=== PATIENT | male | born 1965 | race Caucasian/White ===

== ENCOUNTER 2018-02-07 09:46 | Outpatient (REF) | payer OTHER, SELFPAY ==
[2018-02-07 14:02] LABS: Anion Gap 7.4 mmol/L (3-11); BUN 14 mg/dL (7-18); CO2 27.6 mmol/L (21.0-32.0); CREATININE 0.98 mg/dL (0.70-1.30); Calcium 8.6 mg/dL (8.5-10.1); Chloride 104 mmol/L (98-107); Cholesterol 261 mg/dL (50-200); Glucose 106 mg/dL (70-100); HDL Cholesterol 64 mg/dL (40-60); LDL CHOLESTEROL 189 mg/dL (<100); Potassium 4.2 mmol/L (3.5-5.1); Sodium 139 mmol/L (136-145); Triglyceride 71 mg/dL (30-150)
== END 2018-02-07 10:06 ==
LOC: LBN 09:46
PROVIDERS: PCP Internal Medicine; Visit Provider Internal Medicine
DX: I10 Essential (primary) hypertension (principal)
CPT/HCPCS: 80048; 80061; 83721

== ENCOUNTER 2018-04-28 07:35 | Day surgery (SDC) | payer OTHER, SELFPAY ==
[2018-04-28 07:40] VITALS: BP 136/83; PULSE 60; RESP 16; TEMP 36.2; O2SAT 98
[2018-04-28] MEDS: Lactated Ringers 1,000 ML 30 ML IV (08:09)
--- NOTE | 2018-04-28 10:01 | W.COLOREPORT ---
Date of service: 04/28/18 Time of Service: 10:00 Colonoscopy Report Date of procedure: 04/28/18 Pre-op diagnosis general: Family history of colon cancer Post-op diagnosis procedure note: other (Normal colon to the cecum) Procedure: Colonoscopy to the cecum Surgeon: Brett Zelaya Anesthesia proc note operative: MAC (Sujatha Coffman CRNA; ASA 2 Mallampati class II) Estimated blood loss (mL): 0 Pathology: none sent Complications: None Disposition: same day Indications: 52-year-old male presenting for colorectal cancer screening by colonoscopy. He has been asymptomatic. He does have a family history of colon cancer with a brother who has neurofibromatosis and colon cancer. The procedure has been reviewed with him, and the risks discussed. All his questions been answered to his satisfaction, and consent has been obtained to proceed with colonoscopy. Prep: Miralax/Dulcolax (Prep quality excellent) Procedure Start Time: 09:40 Procedure End Time: 10:55 Retraction Time: 9 Findings: In examining the colon from cecum to anus, no abnormalities were noted. Procedure Description: The patient was seen in the day surgery waiting area. His identification was confirmed, and procedure checked. He was then brought to the procedure room. Monitoring for telemetry, blood pressure, oxygen saturation, and end tidal CO2 monitoring were applied. An appropriate time out was performed to confirm, identification, allergies, medication, procedure, was performed. Sedation was titrated for affect by the MAGNETO SPECIALIST; Once adequate sedation was achieved, I performed a inspection of the external perineum, and a digitial rectal examination. No significant external abnormalities were noted. On digital rectal examination, there was no blood, no masses, good rectal tone, and a normal prostate. I advanced the colonoscope from the anus to the cecum under direct visualization. The cecum was identified by the ileal-cecal valve, and the appendiceal orifice. The scope was then withdrawn in circumferential manner from the cecum to the rectum. No abnormalites were noted in the colon. The scope was then withdrawn into the rectum, and retroflexed. No abnormalities were noted of the rectum or anorectal junction. The scope was then withdrawn, terminating the procedure. There were no complications during the procedure, and the patient tolerated the procedure well. He was returned to the day surgery recovery area in good condition. Plan: Will continue with routine screening for colorectal cancer according to current consensus guidelines, which is currently 5 years.
--- NOTE | 2018-04-28 10:04 | COLE_ITS ---
Date of service: 04/28/18 Time of Service: 10:00 Colonoscopy Report Date of procedure: 04/28/18 Pre-op diagnosis general: Family history of colon cancer Post-op diagnosis procedure note: other (Normal colon to the cecum) Procedure: Colonoscopy to the cecum Surgeon: Brett Zelaya Anesthesia proc note operative: MAC (Sujatha Coffman CRNA; ASA 2 Mallampati class II) Estimated blood loss (mL): 0 Pathology: none sent Complications: None Disposition: same day Indications: 52-year-old male presenting for colorectal cancer screening by colonoscopy. He has been asymptomatic. He does have a family history of colon cancer with a brother who has neurofibromatosis and colon cancer. The procedure has been reviewed with him, and the risks discussed. All his questions been answered to his satisfaction, and consent has been obtained to proceed with colonoscopy. Prep: Miralax/Dulcolax (Prep quality excellent) Procedure Start Time: 09:40 Procedure End Time: 10:55 Retraction Time: 9 Findings: In examining the colon from cecum to anus, no abnormalities were noted. Procedure Description: The patient was seen in the day surgery waiting area. His identification was confirmed, and procedure checked. He was then brought to the procedure room. Monitoring for telemetry, blood pressure, oxygen saturation , and end tidal CO2 monitoring were applied. An appropriate time out was performed to confirm, identification, allergies, medication, procedure, was performed. Sedation was titrated for affect by the REINFORCING STEEL MACHINE OPERATOR; Once adequate sedation was achieved, I performed a inspection of the external perineum, and a digitial rectal examination. No significant external abnormalities were noted. On digital rectal examination, there was no blood, no masses, good rectal tone, and a normal prostate. I advanced the colonoscope from the anus to the cecum under direct visualization. The cecum was identified by the ileal-cecal valve, and the appendiceal orifice. The scope was then withdrawn in circumferential manner from the cecum to the rectum. No abnormalites were noted in the colon. The scope was then withdrawn into the rectum, and retroflexed. No abnormalities were noted of the rectum or anorectal junction. The scope was then withdrawn, terminating the procedure. There were no complications during the procedure, and the patient tolerated the procedure well. He was returned to the day surgery recovery area in good condition. Plan: Will continue with routine screening for colorectal cancer according to current consensus guidelines, which is currently 5 years.
--- NOTE | 2018-04-28 10:05 | W.PM.DSUDISC ---
Discharge Plan Disposition Patient Disposition: HOME Condition: Good Discharge Details Reason For Visit: SCREENING Attending Provider: Brett Zelaya Primary Care Provider: Sierra Puckett Home Meds and New Rx's Prescriptions: Continue amlodipine 5 mg tablet 5 mg PO DAILY Qty: 90 RF: 3 Discharge Instructions Instructions: Colonoscopy (DC) Activity:: Activity as Tolerated Diet:: As Tolerated Discharge Orders Discharge Orders: Discharge Order (Routine); Ordered 04/28/18 Ordered By: Brett Zelaya DS: Diagnosis Discharge Diagnosis (1) Family history of malignant neoplasm of digestive organs: Status: Chronic Asessment and Plan: Colonoscopy performed: Colonoscopy Report Date of procedure: 04/28/18 Pre-op diagnosis general: Family history of colon cancer Post-op diagnosis procedure note: other (Normal colon to the cecum) Procedure: Colonoscopy to the cecum Surgeon: Brett Zelaya Anesthesia proc note operative: MAC (Mulugeta Coffman CRNA; ASA 2 Mallampati class II) Estimated blood loss (mL): 0 Pathology: none sent Complications: None Disposition: same day Indications: 56-year-old gentleman presenting for colorectal cancer screening with a personal history of colon polyps. He is been asymptomatic since his last colonoscopy, and has no family history of colorectal cancer. The risks and benefits of the procedure have been reviewed with him as has the procedure itself. Consents been obtained to proceed with colonoscopy Prep: Miralax/Dulcolax (Prep quality good) Procedure Start Time: 09:40 Procedure End Time: 09:55 Retraction Time: 9 Findings: In examining the colon from cecum to anus, no abnormalities were noted. Procedure Description: The patient was seen in the day surgery waiting area. His identification was confirmed, and procedure checked. He was then brought to the procedure room. Monitoring for telemetry, blood pressure, oxygen saturation, and end tidal CO2 monitoring were applied. An appropriate time out was performed to confirm, identification, allergies, medication, procedure, was performed. Sedation was titrated for affect by the MICROFICHE CAMERA OPERATOR; Once adequate sedation was achieved, I performed a inspection of the external perineum, and a digitial rectal examination. No significant external abnormalities were noted. On digital rectal examination, there was no blood, no masses, good rectal tone, and a normal prostate. I advanced the colonoscope from the anus to the cecum under direct visualization. The cecum was identified by the ileal-cecal valve, and the appendiceal orifice. The scope was then withdrawn in circumferential manner from the cecum to the rectum. No abnormalites were noted in the colon. The scope was then withdrawn into the rectum, and retroflexed. No abnormalities were noted of the rectum or anorectal junction. The scope was then withdrawn, terminating the procedure. There were no complications during the procedure, and the patient tolerated the procedure well. He was returned to the day surgery recovery area in good condition. Plan: Will continue with routine screening for colorectal cancer according to current consensus guidelines, which is currently 5 years.
[2018-04-28 10:40] VITALS: BP 138/82; PULSE 50; RESP 16; TEMP 36; O2SAT 98
== END 2018-04-28 11:00 | disposition home or self-care (01) ==
PROVIDERS: PCP Internal Medicine; Visit Provider Surgery
PROC: 0DJD8ZZ Inspection of Lower Intestinal Tract, Via Natural or Artificial Opening Endoscopic (ICD-10-PCS; CPT 45378; principal; 2018-04-28 09:00)
DX: Z12.11 Encounter for screening for malignant neoplasm of colon (principal); Z80.0 Family history of malignant neoplasm of digestive organs; I10 Essential (primary) hypertension
CPT/HCPCS: 45378

== ENCOUNTER 2018-07-10 02:09 | Outpatient (CLI) | payer OTHER, SELFPAY ==
[2018-07-10 10:40] LABS: Cholesterol 278 mg/dL (50-200); Glucose 102 mg/dL (70-100); HDL Cholesterol 61 mg/dL (40-60); LDL CHOLESTEROL 195 mg/dL (<100); Triglyceride 110 mg/dL (30-150)
== END 2018-07-10 02:29 ==
PROVIDERS: PCP Internal Medicine; Visit Provider Internal Medicine
DX: I10 Essential (primary) hypertension (principal); R73.01 Impaired fasting glucose
CPT/HCPCS: 36415; 80061; 82947; 83721

== ENCOUNTER 2019-06-12 02:07 | Outpatient (CLI) | payer OTHER, SELFPAY ==
[2019-06-12 10:17] LABS: Anion Gap 9.5 mmol/L (3-11); BUN 18 mg/dL (7-18); CO2 27.5 mmol/L (21.0-32.0); CREATININE 1.05 mg/dL (0.70-1.30); Calcium 9.3 mg/dL (8.5-10.1); Calculated LDL 189 mg/dL; Chloride 103 mmol/L (98-107); Cholesterol 269 mg/dL (<200); Glucose 102 mg/dL (74-106); HDL Cholesterol 61 mg/dL (40-60); Potassium 4.3 mmol/L (3.5-5.1); Sodium 140 mmol/L (136-145); Triglyceride 95 mg/dL (<150)
== END 2019-06-12 02:27 ==
PROVIDERS: PCP Internal Medicine; Visit Provider Internal Medicine
DX: I10 Essential (primary) hypertension (principal); E78.00 Pure hypercholesterolemia, unspecified
CPT/HCPCS: 36415; 80048; 80061

== ENCOUNTER 2019-07-09 03:28 | Outpatient (CLI) | payer OTHER, SELFPAY ==
[2019-07-09 09:20] LABS: Calculated LDL 113 mg/dL (<100); Cholesterol 189 mg/dL (<200); HDL Cholesterol 62 mg/dL (40-60); Triglyceride 71 mg/dL (<150)
== END 2019-07-09 03:48 ==
PROVIDERS: PCP Internal Medicine; Visit Provider Internal Medicine
DX: E78.00 Pure hypercholesterolemia, unspecified (principal)
CPT/HCPCS: 36415; 80061

== ENCOUNTER 2020-01-07 02:25 | Outpatient (CLI) | payer OTHER, SELFPAY ==
[2020-01-07 16:04] LABS: Anion Gap 11.1 mmol/L (3-11); BUN 20 mg/dL (7-18); CO2 27.9 mmol/L (21.0-32.0); CREATININE 1.13 mg/dL (0.70-1.30); Calcium 9.1 mg/dL (8.5-10.1); Calculated LDL 90 mg/dL (<100); Chloride 102 mmol/L (98-107); Cholesterol 161 mg/dL (<200); Glucose 90 mg/dL (74-106); HDL Cholesterol 56 mg/dL (40-60); Potassium 3.8 mmol/L (3.5-5.1); Sodium 141 mmol/L (136-145); Triglyceride 77 mg/dL (<150)
== END 2020-01-07 02:45 ==
PROVIDERS: PCP Internal Medicine; Visit Provider Internal Medicine
DX: E78.00 Pure hypercholesterolemia, unspecified (principal); I10 Essential (primary) hypertension
CPT/HCPCS: 36415; 80048; 80061

== ENCOUNTER 2020-04-30 02:22 | Outpatient (CLI) | payer OTHER, SELFPAY ==
[2020-05-01 19:21] LABS: COVID-19 RT-PCR UVMMC Result Negative (Negative)
== END 2020-04-30 02:42 ==
PROVIDERS: PCP Internal Medicine; Visit Provider Internal Medicine
DX: Z20.828 Contact with and (suspected) exposure to other viral communicable diseases (principal)
CPT/HCPCS: U0003

== ENCOUNTER 2020-05-05 03:18 | Outpatient (CLI) | payer OTHER, SELFPAY ==
[2020-05-06 17:30] LABS: COVID-19 RT-PCR UVMMC Result Negative (Negative)
== END 2020-05-05 03:38 ==
PROVIDERS: PCP Internal Medicine; Visit Provider Internal Medicine
DX: Z20.828 Contact with and (suspected) exposure to other viral communicable diseases (principal)
CPT/HCPCS: U0003

== ENCOUNTER 2020-08-07 02:32 | Outpatient (CLI) | payer OTHER, SELFPAY ==
[2020-08-08 14:55] LABS: COVID-19 RT-PCR UVMMC Result Negative (Negative)
== END 2020-08-07 02:33 | disposition home or self-care (01) ==
LOC: LBO 02:33
PROVIDERS: PCP Internal Medicine; Visit Provider Internal Medicine
DX: Z20.828 Contact with and (suspected) exposure to other viral communicable diseases (principal)
CPT/HCPCS: U0003

== ENCOUNTER 2020-08-26 10:43 | Emergency (ER) | payer OTHER, SELFPAY ==
[2020-08-26] VITALS (14 sets, daily range): BP systolic 140–168; BP diastolic 77–98; PULSE 63–76; RESP 11–20; TEMP 36.4; O2SAT 96–99
--- NOTE | 2020-08-26 11:15 | DI.CT_ITS ---
EXAM: CT HEAD WO CLINICAL HISTORY: VÁSQUEZ. TECHNIQUE: Imaging Protocol: Axial computed tomography images with coronal and sagittal reformatted images were created and reviewed COMPARISON: No exams were available for comparison FINDINGS: The ventricular system is normal in appearance. No evidence of acute intracranial hemorrhage, mass effect, or midline shift. The orbital structures are unremarkable. The temporal bone structures appear intact. Calvarium: Normal. Visualized Paranasal sinuses/Mastoids: Clear. IMPRESSION: Normal cranial CT. RADIATION DOSE DELIVERED: 826.33mGy.cm Total DLP DATA REPOSITORY: All CT scans at this facility are submitted to the National Radiology Data Registry (NRDR) Dose Index Registry (DIR) with the [employer] (ACR). RADIATION OPTIMIZATION: All CT scans at this facility use at least one of these dose optimization te chniques: automated exposure control; mA and/or kV adjustment per patient size (includes targeted exa ms where dose is matched to clinical indication); or iterative reconstruction.
--- NOTE | 2020-08-26 11:22 | ED.GENADUL_ITS ---
Discharge Plan Disposition Patient Disposition: HOME Condition: Good Discharge Details Clinical Impression: Headache Primary Care Provider: Sierra Puckett ED Provider: Faye Gutiérrez Home Meds and New Rx's Prescriptions: New prochlorperazine maleate [Compazine] 10 mg tablet 10 mg PO Q6H PRNQty: 10 RF: 0 No Action amlodipine-benazepril 5-40 mg capsule 1 cap PO DAILY Qty: 90 RF: 3 [id number] [Uusald-Jwpul-SVC (with antiox)] 500-500-66.7 mg tablet 2 tab PO DAILY RF: 0 omega-3 fatty acids [Fish Oil Concentrate] 1,000 mg capsule 1,000 mg PO BID RF: 0 atorvastatin 20 mg tablet 20 mg PO DAILY Qty: 90 RF: 3 hydrochlorothiazide 12.5 mg capsule 12.5 mg PO DAILY Qty: 90 RF: 3 Discharge Instructions Instructions: General Headache (ED) Additional Instructions: Please follow-up with your primary care physician tomorrow If the headache returns, you may try taking Excedrin and this is Compazine to see if it alleviates her symptoms We have discussed performing a lumbar puncture to further evaluate you, you have declined at this time, if your headache persists or worsens, you should return to the emergency room for additional evaluation Stand Alone Forms: Work Release Discharge Data Discharge Date/Time-TO BE ENTERED AT DEPARTURE: 08/26/20 14:32 Medical Decision Making Patient is alert, oriented, of decisional capacity, he has a negative CT brain has persistent discomfort, I recommended lumbar puncture to further evaluate for subarachnoid hemorrhage and patient has declined, we have a long discussion about risk and benefit Patient is agreeable to perform CTA of the head and neck He is also agreeable to additional medication I went in to reevaluate patient and it is feeling markedly improved after typical migraine medication He is requesting discharge home I did still make him aware that I cannot completely exclude subarachnoid hemorrhage based on today's findings although the PA and CT are reassuring, patient is a 6-hour time period where CT brain is the most sensitive for hemorrhage Patient remains alert and oriented with a nonfocal neurological exam throughout this encounter He is stable for discharge home at time of reevaluation He is recommended to return should he develop worsening or persistent headache and close outpatient follow-up with primary care physician recommended It is patient with small amount of Compazine Low suspicion for infectious etiology patient as he does not have symptoms consistent Differential Diagnosis Differential Diagnosis: Subdural hematoma, subarachnoid hemorrhage, sinusitis, migraine headache Medical Records Medical records reviewed: Yes I reviewed the patient's medical records. Lab Data Lab results reviewed: Yes I reviewed the patient's lab results. HPI This 54-year-old gentleman with history of hyperlipidemia presents with report of headache which started yesterday was gradual in onset. Denies prior history of headaches in the past. Denies any chest pain or shortness of breath. Denies any visual change. Denies any photophobia or photophobia. States that when he lays flat his headache improved. He denies any head injuries. He denies any strength or sensation changes to extremities or speech change. Patient denies any risk of carbon monoxide exposure. He denies any anticoagulation. General Date/Time Provider Initiated Documentation: 08/26/20 10:51 . Related Data Home Medications Medication Instructions Recorded Confirmed amlodipine 5 mg-benazepril 40 mg 1 cap PO DAILY #90 cap 01/09/20 08/26/20 capsule atorvastatin 20 mg tablet 20 mg PO DAILY #90 tab 07/29/20 08/26/20 hydrochlorothiazide 12.5 mg capsule 12.5 mg PO DAILY #90 tab-cap 07/29/20 08/26/20 gydprznzzjj-mog-eqbzaomne-hrb 2 tab PO DAILY tab 08/13/20 08/26/20 149-hyalur 500 mg-500 mg-66.7 mg tablet omega-3 fatty acids 1,000 mg 1,000 mg PO BID 08/13/20 08/26/20 capsule prochlorperazine maleate 10 mg PO Q6H PRN #10 tab 08/26/20 [Compazine] Previous Rx's Medication Instructions Recorded amlodipine 5 mg-benazepril 40 mg 1 cap PO DAILY #90 cap 01/09/20 capsule atorvastatin 20 mg tablet 20 mg PO DAILY #90 tab 07/29/20 hydrochlorothiazide 12.5 mg capsule 12.5 mg PO DAILY #90 tab-cap 07/29/20 prochlorperazine maleate 10 mg PO Q6H PRN #10 tab 08/26/20 [Compazine] Allergies Allergy/AdvReac Type Severity Reaction Status Date / Time No Known Allergies Allergy Verified 08/26/20 11:06 General Stated Complaint: Headache DU: 3 Review of Systems Narrative: Review of systems obtained x7 aside from where indicated in HPI [facility] Medical History (Updated 08/26/20 @ 14:22 by JONATAN Matthews) Family history of diabetes mellitus Hypertension Impaired fasting glucose Pure hypercholesterolemia Surgical History (Updated 03/15/19 @ 23:57 by Sierra Puckett MD) H/O colonoscopy (04/28/18) normal, repeat 2022 H/O vasectomy Hx of tonsillectomy S/P LASIK surgery of both eyes Family History Father CAD (coronary artery disease) Diabetes Hypertension Mother Diabetes Hypertension Neurofibromatosis Brother , age 19 rectal cancer relater to neurofibomatosis Rectal cancer Neurofibromatosis Social History (Updated 08/13/20 @ 14:52 by Jennifer Demarco LPN) Smoking/Tobacco Use Status: Never Smoking risk assessment performed?: Yes Alcohol Intake: current Alcohol Intake frequency: a few times a week Alcohol type: beer and hard liquor Drug use: Never Substance use type: does not use Adopted: No Household members: spouse and children Housing: house Number of Children: 2 Communication Needs: None 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 [employer] Pets and animals: No Current gender identity: male What is your relationship status?: Panel score (0-1 are the most socially isolated patients): 1 What type of physical activity do you participate in: running Duration: 15-30 minutes/day Frequency: 1-2 times per week Seatbelt use: always Drive intox or ride w/intox services delivery driver: No Water heater temp set <120 deg: Yes Working smoke detector in home: Yes Fire extinguisher in home: Yes Carbon monox detector in home: Yes Do you feel safe at home: Yes Do you feel safe in your relationship?: Yes Exam Const General: cooperative, no acute distress and well developed Orientation: alert HENMT Other: Uvula midline, moist mucous membranes Eyes Pupils: PERRL EOM: EOM intact bilaterally Neck Neck: full ROM Other: No carotid bruit No meningismus Resp Effort & Inspection: normal respiratory effort Auscultation: clear to auscultation bilaterally Cardio Rate: regular rate Rhythm: regular rhythm GI Other: No abdominal bruit or pulsatile mass Skin General skin exam: no rashes or lesions noted Neuro General: patient alert, patient oriented x3 and CN's II-XI intact bilaterally Cognition: normal cognition Speech: speech normal Motor: muscle tone normal throughout Sensory Exam: no sensory deficits noted Course Vital Signs Vital signs: Vital Signs Temperature 36.4 C L 08/26/20 11:01 Pulse 66 08/26/20 11:01 Respiratory Rate 16 08/26/20 11:01 Blood Pressure 168/89 H 08/26/20 11:01 Pulse Oximetry 98 08/26/20 11:01 Temperature 36.4 C L 08/26/20 11:01 Temperature Source Skin 08/26/20 11:01 Pulse 66 08/26/20 11:01 Respiratory Rate 16 08/26/20 11:01 Respiratory Effort Non-Labored 08/26/20 11:01 Blood Pressure 168/89 H 08/26/20 11:01 Blood Pressure Position Sitting 08/26/20 11:01 Pulse Oximetry 98 08/26/20 11:01 Oxygen Delivery Method Room Air 08/26/20 11:01 Oxygen Flow Rate 0 08/26/20 11:01 Pain Level 7 08/26/20 11:07
[2020-08-26] MEDS: Normal Saline 1,000 ML 1000 ML IV (11:40)
[2020-08-26] MEDS: Acetaminophen 500 MG TAB 1000 MG PO (11:40)
[2020-08-26 11:45] LABS: Abs Immature Grans 0.02 10^3/uL (0.0-0.06); Absolute Basophil Count 0.03 10^3/uL (0.0-0.2); Absolute Eosinophil Count 0.02 10^3/uL (0.0-0.7); Absolute Lymphocyte Count 1.22 10^3/uL (1.2-3.4); Absolute Monocyte Count 0.32 10^3/uL (0.1-0.8); Absolute Neutrophil Count 7.36 10^3/uL (1.2-6.7); Basophils % 0.3; Eosinophils % 0.2; HCT 47.8 % (40.0-50.0); HGB 15.8 g/dL (13.5-17.5); Immature Grans % 0.2; Lymphocytes % 13.6; MCH 28.6 pg (27.0-33.0); MCHC 33.1 % (32.0-36.0); MCV 86.4 fL (80-95); Monocytes % 3.6; Neutrophils % 82.1; Nucleated RBC 0 %; Platelet Count 239 10^3/uL (130-400); RBC 5.53 10^6/uL (4.36-5.78); RDW 12.9 % (11.8-14.1); RDW-SD 40.5 fL; WBC 8.97 10^3/uL (4.4-10.8)
[2020-08-26] MEDS: Prochlorperazine 10 MG/2 ML VIAL IVP (11:45)
[2020-08-26] MEDS: diphenhydrAMINE 50 MG/ML VIAL IM (11:50)
[2020-08-26 12:03] LABS: ALT 60 U/L (16-63); AST 20 U/L (15-37); Albumin 4.7 g/dL (3.4-5.0); Alkaline Phosphatase 57 U/L (46-116); Anion Gap 9.3 mmol/L (3-11); BUN 13 mg/dL (7-18); Bilirubin, Total 2.1 mg/dL (0.2-1.0); CO2 27.7 mmol/L (21.0-32.0); CREATININE 0.9 mg/dL (0.70-1.30); Calcium 9.5 mg/dL (8.5-10.1); Chloride 103 mmol/L (98-107); Glucose 134 mg/dL (74-106); Sodium 140 mmol/L (136-145); Total Protein 7.9 g/dL (6.4-8.2)
--- NOTE | 2020-08-26 12:45 | RT.EKG_ITS ---
APPROVED REPORT Exam: Resting ECG Patient Location: E HR:62 bpm ECG Measurements Heart Rate 62 AXIS WI 187 P 16 QRSd 96 QRS 76 QT 429 T 39 QTc 435 Conclusion Sinus rhythm...normal P axis, V-rate 60- 99
[2020-08-26] MEDS: Omnipaque 350 MG/ML 100 ML BTL IJ (13:23)
[2020-08-26] MEDS: Normal Saline - Diluent 50 ML VIAL IV (13:23)
--- NOTE | 2020-08-26 13:40 | DI.CT_ITS ---
EXAM: CT BRAIN NECK CTA CLINICAL HISTORY: new onset VÁSQUEZ, worsening, eval for aneurysm. TECHNIQUE: Imaging Protocol: Axial CT angiography was performed with multi-slice acquisition and mu lti-planar and/or 3D reconstructions. CONTRAST MATERIAL: Intravenous: Omnipaque 350 Contrast volume:structured data in ml COMPARISON: No exams were available for comparison FINDINGS: CT angiography of the cervical cranial region was performed according to the usual protocol with intr avenous infusion of 85 cc of Omnipaque 350.. Initial noncontrast scanning of the head is unremarkable. Visualized lung apices are clear. Visualized portions of thoracic aorta and pulmonary arterial circul ation are unremarkable. There is no evidence of a cervical mass or adenopathy. The tracheal laryngeal structures appear intact. The common, internal, and external carotid arteries are within normal limits in the cervical region w ith no evidence of aneurysm, stenosis, or dissection. The vertebral arteries are unremarkable in appearance in the cervical region with no evidence of aneu rysm, stenosis, or dissection. Intracranial portions of the internal carotid arteries appear normal with no evidence of aneurysm, st enosis, or dissection. Intracranial vertebral arteries and basilar artery appear normal with no evidence of aneurysm, stenos is or dissection. No aneurysm identified in the region of the [id number]. The anterior, middle, and posterior cer ebral arteries and major branches appear intact with no evidence of aneurysm, stenosis, or dissection . No enhancing brain lesion identified. IMPRESSION: Negative CT angiography of the cervical cranial region. RADIATION DOSE DELIVERED: 1,277.59mGy.cmTotal DLP 1,277.59mGy.cm Total DLP DATA REPOSITORY: All CT scans at this facility are submitted to the National Radiology Data Registry (NRDR) Dose Index Registry (DIR) with the [employer] (ACR). RADIATION OPTIMIZATION: All CT scans at this facility use at least one of these dose optimization te chniques: automated exposure control; mA and/or kV adjustment per patient size (includes targeted exa ms where dose is matched to clinical indication); or iterative reconstruction.
[2020-08-26] MEDS: Ketorolac 15 MG/ML VIAL IVP (13:58)
== END 2020-08-26 14:32 | disposition home or self-care (01) ==
PROVIDERS: Emergency Provider Physician Assistant; PCP Internal Medicine
DX: R51.9 Headache, unspecified (principal)
CPT/HCPCS: 70496; 70498; 80053; 93005; 96361; 96374; 96375; 99285; 70450; 85025; 93010; 99283; J0780; J1200; J1885; J3490

== ENCOUNTER 2020-08-27 09:43 | Observation (INO) | payer OTHER, SELFPAY ==
[2020-08-27] VITALS (118 sets, daily range): BP systolic 121–202; BP diastolic 51–96; PULSE 56–98; RESP 10–23; TEMP 36.5–36.8; O2SAT 88–100
--- NOTE | 2020-08-27 10:02 | W.ED.GENAD ---
Discharge Plan Disposition Patient Disposition: [facility] INPATIENT Condition: Stable Discharge Details Clinical Impression: Headache Admit Date/Time: 08/27/20 19:41 Admit Provider: Jj Morrison Attending Provider: Jj Morrison Primary Care Provider: Sierra Puckett ED Provider: Edmund Calabrese Discharge Data Discharge Date/Time-TO BE ENTERED AT DEPARTURE: 08/27/20 22:26 Medical Decision Making <Chuyita Costa DO - Last Filed: 08/28/20 08:39> 1000 -- 54-year-old male with a history of hypertension and hyperlipidemia returns for headache after seen here yesterday for same. Admits to posterior aching headache with radiation to his neck worse upon standing. Denies sudden onset or thunderclap-like headache. As it was discussed yesterday recommendations for lumbar puncture but patient declined, and headache now worse, patient is now agreeable to lumbar puncture considering possibility of subarachnoid hemorrhage. Also consider dehydration, tension headache. He has no focal deficits. He appears nontoxic. No meningeal signs. Patient had a negative Noncon head CT and CTA head and neck yesterday. Do not feel indication for repeat imaging at this time. We will place an IV, screening labs, bolus IV fluids, IV tylenol and plan for bedside LP. LP done. Patient tolerated procedure well. This was a traumatic tap with large amount of blood mixed with cerebrospinal fluid. Patient noted some worsening of headache after procedure as he was sitting up. 1320 --CSF protein and glucose elevated. Cell count pending. Patient reassessed and he states he feels much better and denies any headache at this time. 1345 --CSF white blood cell count 22 with 63% neutrophils. RBC count 19,500, no xanthochromia noted. The findings could be seen in meningitis or intracerebral hemorrhage. Will discuss LP results with [facility] ID. [id number] --discussed with [facility] ID --if you correct for the red blood cells, white blood cell count is negative. Based on patient's symptom presentation, lack of leukocytosis, fever and reassuring exam, does not appear consistent with bacterial meningitis and would not recommend steroids or antibiotics. Based on season and patient's lack of prodromal symptoms, does not appear consistent with Lyme meningitis. Does recommend checking for enterovirus, HSV, EBV and VZV. 1500 --discussed with [facility] neurology who agreed that lumbar puncture may be traumatic tap, however cannot rule out a subarachnoid hemorrhage based on these results, however patient's presentation does not appear classic for subarachnoid hemorrhage. Agrees with plan for MRI brain. Patient reassessed and still asymptomatic. 1530 --Case endorsed to Dr. Calabrese to follow-up on MRI brain and reassessment of patient and final disposition. If patient remains asymptomatic and MRI brain negative, can consider discharge to home. If he is still complaining of headache, plan for admission overnight for observation and continued monitoring. Medical Records Medical records reviewed: Yes I reviewed the patient's medical records. Lab Data Lab results reviewed: Yes I reviewed the patient's lab results. <Edmund Calabrese MD - Last Filed: 08/27/20 21:37> Received signout from Dr. Costa. Please see her note regarding details of initial presentation, exam, plan of care. Patient's MRI was read as normal. He is improved while lying flat but is unable to sit up due to recurrent headache. His work-up so far has been reassuring. Nonetheless, will admit for further management given persistent cephalgia. Lab Data Lab results reviewed: Yes I reviewed the patient's lab results. Labs: Laboratory Results - last 24 hr 08/27/20 08/27/20 08/27/20 09:55 10:25 10:25 WBC RBC Hgb Hct MCV MCH MCHC RDW Plt Count MPV Immature Gran % Neutrophils % Lymphocytes % Monocytes % Eosinophils % Basophils % Nucleated RBC % Absolute Neutrophils Absolute Lymphocytes Absolute Monocytes Absolute Eosinophils Absolute Basophils Xanthochromia PT 10.7 INR 1.1 APTT 21.0 VBG Lactate 1.0 Sodium 140 Potassium 3.8 Chloride 103 Carbon Dioxide 28.8 Anion Gap 8.2 BUN 12 Creatinine 1.0 Estimated GFR/1.73 m2 >= 60.00 Glucose 125 H Calcium 9.4 Total Bilirubin 1.8 H AST 15 ALT 52 Alkaline Phosphatase 55 Total Protein 7.8 Albumin 4.5 CSF Tube Number CSF Color CSF Clarity CSF WBC CSF RBC CSF Neutrophils % CSF Lymphocytes % CSF Monos/Macrophage % CSF Other Cells % CSF Diff Comment CSF Glucose CSF Total Protein EBV DNA, Quant 08/27/20 08/27/20 08/27/20 10:25 11:50 11:50 WBC 7.48 RBC 5.53 Hgb 15.7 Hct 48.0 MCV 86.8 MCH 28.4 MCHC 32.7 RDW 13.0 Plt Count 213 MPV 9.2 Immature Gran % 0.3 Neutrophils % 77.2 Lymphocytes % 16.4 Monocytes % 5.5 Eosinophils % 0.3 Basophils % 0.3 Nucleated RBC % 0 Absolute Neutrophils 5.78 Absolute Lymphocytes 1.23 Absolute Monocytes 0.41 Absolute Eosinophils 0.02 Absolute Basophils 0.02 Xanthochromia Absent PT INR APTT VBG Lactate Sodium Potassium Chloride Carbon Dioxide Anion Gap BUN Creatinine Estimated GFR/1.73 m2 Glucose Calcium Total Bilirubin AST ALT Alkaline Phosphatase Total Protein Albumin CSF Tube Number 4 CSF Color [place] CSF Clarity Cloudy CSF WBC 22 H CSF RBC 73674 H CSF Neutrophils % 63 H CSF Lymphocytes % 15 L CSF Monos/Macrophage % 22 CSF Other Cells % 0 CSF Diff Comment Performed CSF Glucose CSF Total Protein 110 H EBV DNA, Quant 08/27/20 08/27/20 12:50 14:19 WBC RBC Hgb Hct MCV MCH MCHC RDW Plt Count MPV Immature Gran % Neutrophils % Lymphocytes % Monocytes % Eosinophils % Basophils % Nucleated RBC % Absolute Neutrophils Absolute Lymphocytes Absolute Monocytes Absolute Eosinophils Absolute Basophils Xanthochromia PT INR APTT VBG Lactate Sodium Potassium Chloride Carbon Dioxide Anion Gap BUN Creatinine Estimated GFR/1.73 m2 Glucose Calcium Total Bilirubin AST ALT Alkaline Phosphatase Total Protein Albumin CSF Tube Number CSF Color CSF Clarity CSF WBC CSF RBC CSF Neutrophils % CSF Lymphocytes % CSF Monos/Macrophage % CSF Other Cells % CSF Diff Comment CSF Glucose 96 H CSF Total Protein EBV DNA, Quant Cancelled HPI <Chuyita Costa, - Last Filed: 08/28/20 08:39> General Mode of arrival: ambulatory. Date/Time Provider Initiated Documentation: 08/27/20 09:47. Limitations to Documentation: no limitations. Information obtained by: patient. HPI Narrative: Patient is a 54-year-old male with a history of hypertension and hyperlipidemia presents to the ED for headache. Patient was seen here yesterday for the same complaint and was given Compazine, Benadryl, Tylenol, Toradol, Haldol and fluids and felt better and requested to go home. Patient states his headache started 48 hours ago. He states he awoke without a headache on Tuesday morning but then the headache started gradually in his forehead and then progressed and is now in the back of his head. He describes the headache as constant, aching with occasional radiation to his neck. He states the headache was 7/10 yesterday but is worse today at 8/10. He states the headache is worse upon standing. He has not taken any medication for pain today. He denies any fever, blurry vision, flashes of light, nausea, vomiting, chest pain, shortness of breath, dizziness, urinary symptoms, recent travel, recent exposure to coronavirus. He states he has not had much of an appetite due to his headache for the past 2 days. Related Data Home Medications Medication Instructions Recorded Confirmed amlodipine 5 mg-benazepril 40 mg 1 cap PO DAILY #90 cap 01/09/20 08/27/20 capsule atorvastatin 20 mg tablet 20 mg PO DAILY #90 tab 07/29/20 08/27/20 hydrochlorothiazide 12.5 mg capsule 12.5 mg PO DAILY #90 tab-cap 07/29/20 08/27/20 [id number]-hrb 2 tab PO DAILY tab 08/13/20 08/27/20 149-hyalur 500 mg-500 mg-66.7 mg tablet omega-3 fatty acids 1,000 mg 1,000 mg PO BID 08/13/20 08/27/20 capsule prochlorperazine maleate 10 mg PO Q6H PRN #10 tab 08/26/20 08/27/20 [Compazine] Previous Rx's Medication Instructions Recorded amlodipine 5 mg-benazepril 40 mg 1 cap PO DAILY #90 cap 01/09/20 capsule atorvastatin 20 mg tablet 20 mg PO DAILY #90 tab 07/29/20 hydrochlorothiazide 12.5 mg capsule 12.5 mg PO DAILY #90 tab-cap 07/29/20 prochlorperazine maleate 10 mg PO Q6H PRN #10 tab 08/26/20 [Compazine] Allergies Allergy/AdvReac Type Severity Reaction Status Date / Time No Known Allergies Allergy Verified 08/27/20 09:52 General Stated Complaint: Headache DU: 2 Review of Systems <Chuyita Costa DO - Last Filed: 08/28/20 08:39> All systems reviewed & are unremarkable except as noted in HPI and below Constitutional Constitutional: Reports as per HPI, Denies chills, Denies fever(s) and Reports headache(s) Eyes Eyes: Denies blurry vision ENT Ears, Nose, Mouth, and Throat: Denies dizziness, Reports headache(s), Denies sore throat and Denies throat swelling Cardiovascular Cardiovascular: Denies chest pain and Denies dyspnea Respiratory Respiratory: Denies cough and Denies dyspnea Gastrointestinal Gastrointestinal: Denies abdominal pain, Denies diarrhea and Denies vomiting Genitourinary Genitourinary: Denies hematuria and Denies dysuria Musculoskeletal Musculoskeletal: Denies back pain and Denies numbness Integumentary/Breasts Skin/Breast: Denies lesions and Denies rash Neurologic Neurologic: Denies dizziness, Reports headache(s), Denies localized weakness and Denies numbness Allergic/Immunologic Allergic/Immunologic: Denies throat swelling PFSH <Chuyita Costa, DO - Last Filed: 08/28/20 08:39> Medical History Family history of diabetes mellitus Hypertension Impaired fasting glucose Pure hypercholesterolemia Surgical History H/O colonoscopy (04/28/18) normal, repeat 2022 H/O vasectomy Hx of tonsillectomy S/P LASIK surgery of both eyes Family History Father CAD (coronary artery disease) Diabetes Hypertension Mother Diabetes Hypertension Neurofibromatosis Brother , age 19 rectal cancer relater to neurofibomatosis Rectal cancer Neurofibromatosis Social History Smoking/Tobacco Use Status: Never Smoking risk assessment performed?: Yes Alcohol Intake: current Alcohol Intake frequency: a few times a week Alcohol type: beer and hard liquor Drug use: Never Substance use type: does not use Adopted: No Household members: spouse and children Housing: house Number of Children: 2 Communication Needs: None 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 [employer] Pets and animals: No Current gender identity: male What is your relationship status?: Panel score (0-1 are the most socially isolated patients): 1 What type of physical activity do you participate in: running Duration: 15-30 minutes/day Frequency: 1-2 times per week Seatbelt use: always Drive 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 Water heater temp set <120 deg: Yes Working smoke detector in home: Yes Fire extinguisher in home: Yes Carbon monox detector in home: Yes Do you feel safe at home: Yes Do you feel safe in your relationship?: Yes Exam <Chuyita Costa DO - Last Filed: 08/28/20 08:39> Const General: cooperative and no acute distress HENMT Head: normal to inspection Face and sinus: normal facial exam Eyes General: appearance normal, both eyes and all related structures Pupils: PERRL EOM: EOM intact bilaterally Neck Neck: normal visual inspection and No submandibular swelling Lymphatic: no lymphadenopathy noted Chest Chest: normal inspection of the chest and no tenderness Resp Effort & Inspection: normal respiratory effort and able to speak in complete sentences Auscultation: clear to auscultation bilaterally Cardio Rate: regular rate Rhythm: regular rhythm GI Inspection: normal to inspection Palpation: soft, not firm, not rigid and nontender Auscultation: normal bowel sounds Skin General skin exam: no rashes or lesions noted Neuro General: patient alert, patient awake, patient oriented x3, moves all extremities, no meningeal signs and other (Some pain in neck w/ flexion of head but no knee flexion with head flexion) Cranial Nerves: CN's II-XI intact bilaterally Cognition: normal cognition Speech: speech normal Motor: muscle tone normal throughout and strength 5/5 throughout Sensory Exam: no sensory deficits noted Extrem General: normal to inspection, full ROM, capillary refill normal, no calf tenderness bilaterally and no edema Psych Appearance: grossly normal Mental Status: mental status grossly normal Speech and Movement: speech and movement normal Affect: normal affect Course <Chuyita Costa DO - Last Filed: 08/28/20 08:39> Vital Signs Vital signs: Vital Signs Temperature 97.7 F 08/27/20 09:47 Pulse 62 08/27/20 09:47 Respiratory Rate 14 08/27/20 09:47 Blood Pressure 166/93 H 08/27/20 09:47 Pulse Oximetry 98 08/27/20 09:47 Temperature 97.7 F 08/27/20 09:47 Temperature Source Skin 08/27/20 09:47 Pulse 62 08/27/20 09:47 Respiratory Rate 14 08/27/20 09:47 Respiratory Effort Non-Labored 08/27/20 09:51 Blood Pressure 166/93 H 08/27/20 09:47 Blood Pressure Position Supine 08/27/20 09:47 Pulse Oximetry 98 08/27/20 09:47 Oxygen Delivery Method Room Air 08/27/20 09:47 Oxygen Flow Rate 0 08/27/20 09:47 Pain Level 8 08/27/20 09:53 Procedures <Chuyita Costa DO - Last Filed: 08/28/20 08:39> Lumbar Puncture Time Out Performed: Yes Patient Position: sitting upright/leaning forward Skin Prep: Povidone-Iodine 1% Local Anesthetic: Lidocaine 1% Amount of anesthesia used (mL): 3 Spinal Needle Gauge: 20G Interspace Used: L3-L4 Fluid Initially Obtained: bloody Complications: bleeding Sign Out <Chuyita Costa DO - Last Filed: 08/28/20 08:39> Sign Out Data: Sign Out Comment: Follow-up on MRI brain. If negative and symptoms completely resolved, can consider discharge home with follow-up with primary care doctor. If patient's symptoms not improved, consider admission overnight for IV fluids and continued monitoring. Last updated by Chuyita Costa DO at 08/27/20 15:21
[2020-08-27 10:33] LABS: Abs Immature Grans 0.02 10^3/uL (0.0-0.06); Absolute Basophil Count 0.02 10^3/uL (0.0-0.2); Absolute Eosinophil Count 0.02 10^3/uL (0.0-0.7); Absolute Lymphocyte Count 1.23 10^3/uL (1.2-3.4); Absolute Monocyte Count 0.41 10^3/uL (0.1-0.8); Absolute Neutrophil Count 5.78 10^3/uL (1.2-6.7); Basophils % 0.3; Eosinophils % 0.3; HGB 15.7 g/dL (13.5-17.5); Immature Grans % 0.3; Lymphocytes % 16.4; MCH 28.4 pg (27.0-33.0); MCHC 32.7 % (32.0-36.0); MCV 86.8 fL (80-95); MPV 9.2 fL (8.0-11.0); Monocytes % 5.5; Neutrophils % 77.2; Nucleated RBC 0 %; Platelet Count 213 10^3/uL (130-400); RBC 5.53 10^6/uL (4.36-5.78); RDW-SD 41.6 fL; WBC 7.48 10^3/uL (4.4-10.8)
[2020-08-27 10:50] LABS: ALT 52 U/L (16-63); AST 15 U/L (15-37); Albumin 4.5 g/dL (3.4-5.0); Alkaline Phosphatase 55 U/L (46-116); Anion Gap 8.2 mmol/L (3-11); BUN 12 mg/dL (7-18); Bilirubin, Total 1.8 mg/dL (0.2-1.0); CO2 28.8 mmol/L (21.0-32.0); Calcium 9.4 mg/dL (8.5-10.1); Chloride 103 mmol/L (98-107); Glucose 125 mg/dL (74-106); Potassium 3.8 mmol/L (3.5-5.1); Sodium 140 mmol/L (136-145); Total Protein 7.8 g/dL (6.4-8.2)
[2020-08-27] MEDS: ACETAMINOPHEN 1,000 MG/100 ML BTL 400 MG IVPB (11:10)
[2020-08-27] MEDS: Normal Saline 1,000 ML 1000 ML IV ×2 (11:10→12:15)
[2020-08-27 11:12] LABS: INR 1.1 (0.9-1.1); Prothrombin Time 10.7 sec (9.3-11.0)
[2020-08-27 12:51] LABS: Glucose (CSF) 96 mg/dL (40-70)
[2020-08-27 12:51] LABS: Total Protein (CSF) 110 mg/dL (15-45)
[2020-08-27 13:30] LABS: Tube # 4
[2020-08-27 13:31] LABS: Clarity Cloudy; WBC 22 /uL (0-5)
[2020-08-27 13:32] LABS: Differential CSF: Performed; Lymphocytes CSF 15 % (40-80); Monocyte/Macrophage CSF 22 % (15-45); Neutrophils CSF 63 % (0-6); Other Cells CSF 0 % (0); RBC 19500 /mm3 (0-5)
[2020-08-27 13:42] LABS: Xanthochromia Absent
--- NOTE | 2020-08-27 16:06 | DI.MRI_ITS ---
EXAM: MR BRAIN WO CLINICAL HISTORY: posterior occipital VÁSQUEZ, r/o acute cva. TECHNIQUE: Multiplanar multisequence MRI of the brain was performed. CONTRAST MATERIAL: Noncontrast COMPARISON: CT CT BRAIN NECK CTA from 08/26/[address] HEAD WO from 08/26/[address] BRAIN NECK CTA from 08/26/2020 FINDINGS: VENTRICLES AND EXTRA AXIAL SPACES: Normal in size and morphology for the patient's age. HEMORRHAGE: None. CEREBRAL PARENCHYMA: No focus of restricted diffusion to suggest acute infarct. No space-occupying le daria identified. No white matter lesions. MIDLINE SHIFT: None. BRAINSTEM/CEREBELLUM: Normal. Vascular flow voids: Intact. VISUALIZED PARANASAL SINUSES/MASTOIDS: Clear. OTHER FINDINGS: None. IMPRESSION: Normal MRI of the brain. DATA REPOSITORY:
[2020-08-27 18:43] LABS: Source Nasal/Nares
--- NOTE | 2020-08-27 20:50 | W.PM.HP.N ---
Date of service: 08/27/20 Time of Service: 20:50 Assessment and Plan Assessment and plan (1) Headache: Status: Acute (2) Hypertension: Status: Chronic Qualifiers: Hypertension type: essential hypertension Qualified Code(s): I10 - Essential (primary) hypertension (3) Impaired fasting glucose: Status: Chronic History of Present Illness History of Present Illness Chief Complaint: Headache Narrative: This is a 54 yo male with a PMH of HTN, HLD, impaired fasting glucose. He presented to the ED with ongoing VÁSQUEZ; seen the previous day in the ED for the same. At that previous visit he was given IV fluids, compazine, benadryl, acetaminophen and Haldol. He felt better and was discharged. He indicates that the location of the pain is occipital with radiation to the posterior neck. No visual changes. Fever.N/V, CP, SOA, lightheadedness/dizziness. Covid screen negative. CBC and electrolytes normal. Bilirubin elevated at 1.8, down from 2.1 the previous day. LFTs normal. Lumbar puncture obtained with a WBC count of 22, 63% nautrophils. RBC count 19,500 w/o xanthochromia. [facility] ID and neurology both consulted by the ED physician. They stated the findings were not consistent with bacterial meningits and steroids or antibiotics were not recommended. MRI of brain r/o subarachnoid hemmorrhage. His head was eased while lying supine; worsened with sitting or standing. This was described by the patient prior to the LP. Review of Systems All systems reviewed & are unremarkable except as noted in HPI and below PFSH Medical History Family history of diabetes mellitus Hypertension Impaired fasting glucose Pure hypercholesterolemia Surgical History H/O colonoscopy (04/28/18) normal, repeat 2022 H/O vasectomy Hx of tonsillectomy S/P LASIK surgery of both eyes Family History Father CAD (coronary artery disease) Diabetes Hypertension Mother Diabetes Hypertension Neurofibromatosis Brother , age 19 rectal cancer relater to neurofibomatosis Rectal cancer Neurofibromatosis Social History Smoking/Tobacco Use Status: Never Smoking risk assessment performed?: Yes Alcohol Intake: current Alcohol Intake frequency: a few times a week Alcohol type: beer and hard liquor Drug use: Never Substance use type: does not use Adopted: No Household members: spouse and children Housing: house Number of Children: 2 Communication Needs: None 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 [employer] Pets and animals: No Current gender identity: male What is your relationship status?: Panel score (0-1 are the most socially isolated patients): 1 What type of physical activity do you participate in: running Duration: 15-30 minutes/day Frequency: 1-2 times per week Seatbelt use: always Drive intox 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 Water heater temp set <120 deg: Yes Working smoke detector in home: Yes Fire extinguisher in home: Yes Carbon monox detector in home: Yes Do you feel safe at home: Yes Do you feel safe in your relationship?: Yes Meds Home Medications and Allergies Allergies Allergy/AdvReac Type Severity Reaction Status Date / Time No Known Allergies Allergy Verified 08/27/20 09:52 Home Medications Medication Instructions Recorded Confirmed Type amlodipine 5 mg-benazepril 40 mg 1 cap PO DAILY #90 cap 01/09/20 08/27/20 Rx capsule atorvastatin 20 mg tablet 20 mg PO DAILY #90 tab 07/29/20 08/27/20 Rx hydrochlorothiazide 12.5 mg capsule 12.5 mg PO DAILY #90 tab-cap 07/29/20 08/27/20 Rx [id number]-[id number]-[id number]-hrb 2 tab PO DAILY tab 08/13/20 08/27/20 History 149-hyalur 500 mg-500 mg-66.7 mg tablet omega-3 fatty acids 1,000 mg 1,000 mg PO BID 08/13/20 08/27/20 History capsule prochlorperazine maleate 10 mg PO Q6H PRN #10 tab 08/26/20 08/27/20 Rx [Compazine] Results Labs Result diagrams: 08/27/20 10:25 08/27/20 10:25 Labs: Laboratory Results - last 24 hr 08/27/20 08/27/20 08/27/20 09:55 10:25 10:25 WBC RBC Hgb Hct MCV MCH MCHC RDW Plt Count MPV Immature Gran % Neutrophils % Lymphocytes % Monocytes % Eosinophils % Basophils % Nucleated RBC % Absolute Neutrophils Absolute Lymphocytes Absolute Monocytes Absolute Eosinophils Absolute Basophils Xanthochromia PT 10.7 INR 1.1 APTT 21.0 VBG Lactate 1.0 Sodium 140 Potassium 3.8 Chloride 103 Carbon Dioxide 28.8 Anion Gap 8.2 BUN 12 Creatinine 1.0 Estimated GFR/1.73 m2 >= 60.00 Glucose 125 H Calcium 9.4 Total Bilirubin 1.8 H AST 15 ALT 52 Alkaline Phosphatase 55 Total Protein 7.8 Albumin 4.5 CSF Tube Number CSF Color CSF Clarity CSF WBC CSF RBC CSF Neutrophils % CSF Lymphocytes % CSF Monos/Macrophage % CSF Other Cells % CSF Diff Comment CSF Glucose CSF Total Protein COVID-19 Source EBV DNA, Quant 08/27/20 08/27/20 08/27/20 10:25 11:50 11:50 WBC 7.48 RBC 5.53 Hgb 15.7 Hct 48.0 MCV 86.8 MCH 28.4 MCHC 32.7 RDW 13.0 Plt Count 213 MPV 9.2 Immature Gran % 0.3 Neutrophils % 77.2 Lymphocytes % 16.4 Monocytes % 5.5 Eosinophils % 0.3 Basophils % 0.3 Nucleated RBC % 0 Absolute Neutrophils 5.78 Absolute Lymphocytes 1.23 Absolute Monocytes 0.41 Absolute Eosinophils 0.02 Absolute Basophils 0.02 Xanthochromia Absent PT INR APTT VBG Lactate Sodium Potassium Chloride Carbon Dioxide Anion Gap BUN Creatinine Estimated GFR/1.73 m2 Glucose Calcium Total Bilirubin AST ALT Alkaline Phosphatase Total Protein Albumin CSF Tube Number 4 CSF Color [place] CSF Clarity Cloudy CSF WBC 22 H CSF RBC 30993 H CSF Neutrophils % 63 H CSF Lymphocytes % 15 L CSF Monos/Macrophage % 22 CSF Other Cells % 0 CSF Diff Comment Performed CSF Glucose CSF Total Protein 110 H COVID-19 Source EBV DNA, Quant 08/27/20 08/27/20 08/27/20 12:50 14:19 18:35 WBC RBC Hgb Hct MCV MCH MCHC RDW Plt Count MPV Immature Gran % Neutrophils % Lymphocytes % Monocytes % Eosinophils % Basophils % Nucleated RBC % Absolute Neutrophils Absolute Lymphocytes Absolute Monocytes Absolute Eosinophils Absolute Basophils Xanthochromia PT INR APTT VBG Lactate Sodium Potassium Chloride Carbon Dioxide Anion Gap BUN Creatinine Estimated GFR/1.73 m2 Glucose Calcium Total Bilirubin AST ALT Alkaline Phosphatase Total Protein Albumin CSF Tube Number CSF Color CSF Clarity CSF WBC CSF RBC CSF Neutrophils % CSF Lymphocytes % CSF Monos/Macrophage % CSF Other Cells % CSF Diff Comment CSF Glucose 96 H CSF Total Protein COVID-19 Source Nasal/nares EBV DNA, Quant Cancelled Last Vital Signs Temp 36.5 C 08/27/20 09:47 Pulse 68 08/27/20 19:46 Resp 18 08/27/20 19:50 BP 157/90 H 08/27/20 19:46 Pulse Ox 97 08/27/20 19:50 COVID-19 Screening Have you, or household traveled for leisure in last 14 days?: No Had IN PERSON contact w/suspected or confirmed C-19 person: No
--- NOTE | 2020-08-27 21:02 | W.PM.HP.N ---
Date of service: 08/27/20 Time of Service: 21:03 Assessment and Plan Assessment and plan (1) Headache: Status: Acute (2) Hypertension: Status: Chronic Qualifiers: Hypertension type: essential hypertension Qualified Code(s): I10 - Essential (primary) hypertension (3) Impaired fasting glucose: Status: Chronic (4) Hyperbilirubinemia: Status: Acute History of Present Illness History of Present Illness Chief Complaint: Headache Narrative: This is a 54 yo male with a PMH of HTN, HLD, impaired fasting glucose. He presented to the ED with ongoing VÁSQUEZ; seen the previous day in the ED for the same. At that previous visit he was given IV fluids, compazine, benadryl, acetaminophen and Haldol. He felt better and was discharged. He indicates that the location of the pain is occipital with radiation to the posterior neck. No visual changes. Fever.N/V, CP, SOA, lightheadedness/dizziness. Covid screen negative. CBC and electrolytes normal. Bilirubin elevated at 1.8, down from 2.1 the previous day. LFTs normal. Lumbar puncture obtained with a WBC count of 22, 63% nautrophils. RBC count 19,500 w/o xanthochromia. [facility] [place] ID and neurology both consulted by the ED physician. They stated the findings were not consistent with bacterial meningits and steroids or antibiotics were not recommended. MRI of brain r/o subarachnoid hemmorrhage. His head was eased while lying supine; worsened with sitting or standing. This was described by the patient prior to the LP. Review of Systems All systems reviewed & are unremarkable except as noted in HPI and below PFSH Medical History Family history of diabetes mellitus Hypertension Impaired fasting glucose Pure hypercholesterolemia Surgical History H/O colonoscopy (04/28/18) normal, repeat 2022 H/O vasectomy Hx of tonsillectomy S/P LASIK surgery of both eyes Family History Father CAD (coronary artery disease) Diabetes Hypertension Mother Diabetes Hypertension Neurofibromatosis Brother , age 19 rectal cancer relater to neurofibomatosis Rectal cancer Neurofibromatosis Social History Smoking/Tobacco Use Status: Never Smoking risk assessment performed?: Yes Alcohol Intake: current Alcohol Intake frequency: a few times a week Alcohol type: beer and hard liquor Drug use: Never Substance use type: does not use Adopted: No Household members: spouse and children Housing: house Number of Children: 2 Communication Needs: None 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 [employer] Pets and animals: No Current gender identity: male What is your relationship status?: Panel score (0-1 are the most socially isolated patients): 1 What type of physical activity do you participate in: running Duration: 15-30 minutes/day Frequency: 1-2 times per week Seatbelt use: always Drive intox or ride w/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 Water heater temp set <120 deg: Yes Working smoke detector in home: Yes Fire extinguisher in home: Yes Carbon monox detector in home: Yes Do you feel safe at home: Yes Do you feel safe in your relationship?: Yes Meds Home Medications and Allergies Allergies Allergy/AdvReac Type Severity Reaction Status Date / Time No Known Allergies Allergy Verified 08/27/20 09:52 Home Medications Medication Instructions Recorded Confirmed Type amlodipine 5 mg-benazepril 40 mg 1 cap PO DAILY #90 cap 01/09/20 08/27/20 Rx capsule atorvastatin 20 mg tablet 20 mg PO DAILY #90 tab 07/29/20 08/27/20 Rx hydrochlorothiazide 12.5 mg capsule 12.5 mg PO DAILY #90 tab-cap 07/29/20 08/27/20 Rx [id number] 2 tab PO DAILY tab 08/13/20 08/27/20 History 149-hyalur 500 mg-500 mg-66.7 mg tablet omega-3 fatty acids 1,000 mg 1,000 mg PO BID 08/13/20 08/27/20 History capsule prochlorperazine maleate 10 mg PO Q6H PRN #10 tab 08/26/20 08/27/20 Rx [Compazine] Results Labs Result diagrams: 08/27/20 10:25 08/27/20 10:25 Labs: Laboratory Results - last 24 hr 08/27/20 08/27/20 08/27/20 09:55 10:25 10:25 WBC RBC Hgb Hct MCV MCH MCHC RDW Plt Count MPV Immature Gran % Neutrophils % Lymphocytes % Monocytes % Eosinophils % Basophils % Nucleated RBC % Absolute Neutrophils Absolute Lymphocytes Absolute Monocytes Absolute Eosinophils Absolute Basophils Xanthochromia PT 10.7 INR 1.1 APTT 21.0 VBG Lactate 1.0 Sodium 140 Potassium 3.8 Chloride 103 Carbon Dioxide 28.8 Anion Gap 8.2 BUN 12 Creatinine 1.0 Estimated GFR/1.73 m2 >= 60.00 Glucose 125 H Calcium 9.4 Total Bilirubin 1.8 H AST 15 ALT 52 Alkaline Phosphatase 55 Total Protein 7.8 Albumin 4.5 CSF Tube Number CSF Color CSF Clarity CSF WBC CSF RBC CSF Neutrophils % CSF Lymphocytes % CSF Monos/Macrophage % CSF Other Cells % CSF Diff Comment CSF Glucose CSF Total Protein COVID-19 Source EBV DNA, Quant 08/27/20 08/27/20 08/27/20 10:25 11:50 11:50 WBC 7.48 RBC 5.53 Hgb 15.7 Hct 48.0 MCV 86.8 MCH 28.4 MCHC 32.7 RDW 13.0 Plt Count 213 MPV 9.2 Immature Gran % 0.3 Neutrophils % 77.2 Lymphocytes % 16.4 Monocytes % 5.5 Eosinophils % 0.3 Basophils % 0.3 Nucleated RBC % 0 Absolute Neutrophils 5.78 Absolute Lymphocytes 1.23 Absolute Monocytes 0.41 Absolute Eosinophils 0.02 Absolute Basophils 0.02 Xanthochromia Absent PT INR APTT VBG Lactate Sodium Potassium Chloride Carbon Dioxide Anion Gap BUN Creatinine Estimated GFR/1.73 m2 Glucose Calcium Total Bilirubin AST ALT Alkaline Phosphatase Total Protein Albumin CSF Tube Number 4 CSF Color [place] CSF Clarity Cloudy CSF WBC 22 H CSF RBC 79420 H CSF Neutrophils % 63 H CSF Lymphocytes % 15 L CSF Monos/Macrophage % 22 CSF Other Cells % 0 CSF Diff Comment Performed CSF Glucose CSF Total Protein 110 H COVID-19 Source EBV DNA, Quant 08/27/20 08/27/20 08/27/20 12:50 14:19 18:35 WBC RBC Hgb Hct MCV MCH MCHC RDW Plt Count MPV Immature Gran % Neutrophils % Lymphocytes % Monocytes % Eosinophils % Basophils % Nucleated RBC % Absolute Neutrophils Absolute Lymphocytes Absolute Monocytes Absolute Eosinophils Absolute Basophils Xanthochromia PT INR APTT VBG Lactate Sodium Potassium Chloride Carbon Dioxide Anion Gap BUN Creatinine Estimated GFR/1.73 m2 Glucose Calcium Total Bilirubin AST ALT Alkaline Phosphatase Total Protein Albumin CSF Tube Number CSF Color CSF Clarity CSF WBC CSF RBC CSF Neutrophils % CSF Lymphocytes % CSF Monos/Macrophage % CSF Other Cells % CSF Diff Comment CSF Glucose 96 H CSF Total Protein COVID-19 Source Nasal/nares EBV DNA, Quant Cancelled Last Vital Signs Temp 36.5 C 08/27/20 09:47 Pulse 68 08/27/20 19:46 Resp 18 08/27/20 19:50 BP 157/90 H 08/27/20 19:46 Pulse Ox 97 08/27/20 19:50 COVID-19 Screening Have you, or household traveled for leisure in last 14 days?: No Had IN PERSON contact w/suspected or confirmed C-19 person: No
--- NOTE | 2020-08-27 21:30 | W.PM.HP.N ---
Date of service: 08/27/20 Time of Service: 21:31 Assessment and Plan Assessment and plan (1) Hyperbilirubinemia: Status: Acute Assessment and plan: Likely to be incidental finding and not related to his current VÁSQUEZ. Fatty liver? LFTs are normal. Monitor (2) Headache: Status: Acute Assessment and plan: Unclear etiology. Isolated headache w/o signs/symptoms of infectious process. Phenergan and Toradol ordered. IV fluids. Feels much better when supine. If not resolving tomorrow, neurology consult recommended. (3) Pure hypercholesterolemia: Status: Chronic Assessment and plan: Cont atorvastatin (4) Impaired fasting glucose: Status: Chronic Assessment and plan: Random glucose 125. (5) Hypertension: Status: Chronic Assessment and plan: Cont home amlodipine, benazepril and HCTZ. Monitor. BP has not been elevated in a range that would likely cause his current VÁSQUEZ though he has had readings in the 160-170's. Will give a dose of amlodipine tonight. Qualifiers: Hypertension type: essential hypertension Qualified Code(s): I10 - Essential (primary) hypertension History of Present Illness History of Present Illness Chief Complaint: Headache Narrative: This is a 54 yo male with a PMH of HTN, HLD, impaired fasting glucose. He presented to the ED with ongoing VÁSQUEZ; seen the previous day in the ED for the same. At that previous visit he was given IV fluids, compazine, benadryl, acetaminophen and Haldol. He felt better and was discharged. He indicates that the location of the pain is occipital with radiation to the posterior neck. No visual changes. Fever.N/V, CP, SOA, lightheadedness/dizziness. Covid screen negative. CBC and electrolytes normal. Bilirubin elevated at 1.8, down from 2.1 the previous day. LFTs normal. Lumbar puncture obtained with a WBC count of 22, 63% nautrophils. RBC count 19,500 w/o xanthochromia. [facility] [place] ID and neurology both consulted by the ED physician. They stated the findings were not consistent with bacterial meningits and steroids or antibiotics were not recommended. MRI of brain r/o subarachnoid hemmorrhage. His head was eased while lying supine; worsened with sitting or standing. This was described by the patient prior to the LP. Review of Systems All systems reviewed & are unremarkable except as noted in HPI and below PFSH Medical History Family history of diabetes mellitus Hypertension Impaired fasting glucose Pure hypercholesterolemia Surgical History H/O colonoscopy (04/28/18) normal, repeat 2022 H/O vasectomy Hx of tonsillectomy S/P LASIK surgery of both eyes Family History Father CAD (coronary artery disease) Diabetes Hypertension Mother Diabetes Hypertension Neurofibromatosis Brother , age 19 rectal cancer relater to neurofibomatosis Rectal cancer Neurofibromatosis Social History Smoking/Tobacco Use Status: Never Smoking risk assessment performed?: Yes Alcohol Intake: current Alcohol Intake frequency: a few times a week Alcohol type: beer and hard liquor Drug use: Never Substance use type: does not use Adopted: No Household members: spouse and children Housing: house Number of Children: 2 Communication Needs: None 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 [employer] Pets and animals: No Current gender identity: male What is your relationship status?: Panel score (0-1 are the most socially isolated patients): 1 What type of physical activity do you participate in: running Duration: 15-30 minutes/day Frequency: 1-2 times per week Seatbelt use: always Drive intox or ride w/intox 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 Water heater temp set <120 deg: Yes Working smoke detector in home: Yes Fire extinguisher in home: Yes Carbon monox detector in home: Yes Do you feel safe at home: Yes Do you feel safe in your relationship?: Yes Meds Home Medications and Allergies Allergies Allergy/AdvReac Type Severity Reaction Status Date / Time No Known Allergies Allergy Verified 08/27/20 09:52 Home Medications Medication Instructions Recorded Confirmed Type amlodipine 5 mg-benazepril 40 mg 1 cap PO DAILY #90 cap 01/09/20 08/27/20 Rx capsule atorvastatin 20 mg tablet 20 mg PO DAILY #90 tab 07/29/20 08/27/20 Rx hydrochlorothiazide 12.5 mg capsule 12.5 mg PO DAILY #90 tab-cap 07/29/20 08/27/20 Rx [id number] 2 tab PO DAILY tab 08/13/20 08/27/20 History 149-hyalur 500 mg-500 mg-66.7 mg tablet omega-3 fatty acids 1,000 mg 1,000 mg PO BID 08/13/20 08/27/20 History capsule prochlorperazine maleate 10 mg PO Q6H PRN #10 tab 08/26/20 08/27/20 Rx [Compazine] Exam Narrative Exam Narrative: Lying supine. In the ED. Const General: cooperative and no acute distress Nutritional Appearance: average body habitus Orientation: alert and oriented x3 HENMT Head: normocephalic and atraumatic Eyes Sclera: sclerae normal Pupils: PERRL Resp Effort & Inspection: normal respiratory effort Auscultation: clear to auscultation bilaterally Cardio Rate: regular rate Rhythm: regular rhythm Heart Sounds: S1 normal and S2 normal GI Palpation: soft and nontender Skin General skin exam: no rashes or lesions noted Neuro General: no focal motor deficits Cranial Nerves: facial strength normal Speech: speech normal Extrem General: no pedal edema and no calf tenderness Psych Appearance: grossly normal Mental Status: mental status grossly normal Speech and Movement: speech and movement normal Affect: normal affect Results Labs Result diagrams: 08/27/20 10:25 08/27/20 10:25 Labs: Laboratory Results - last 24 hr 08/27/20 08/27/20 08/27/20 09:55 10:25 10:25 WBC RBC Hgb Hct MCV MCH MCHC RDW Plt Count MPV Immature Gran % Neutrophils % Lymphocytes % Monocytes % Eosinophils % Basophils % Nucleated RBC % Absolute Neutrophils Absolute Lymphocytes Absolute Monocytes Absolute Eosinophils Absolute Basophils Xanthochromia PT 10.7 INR 1.1 APTT 21.0 VBG Lactate 1.0 Sodium 140 Potassium 3.8 Chloride 103 Carbon Dioxide 28.8 Anion Gap 8.2 BUN 12 Creatinine 1.0 Estimated GFR/1.73 m2 >= 60.00 Glucose 125 H Calcium 9.4 Total Bilirubin 1.8 H AST 15 ALT 52 Alkaline Phosphatase 55 Total Protein 7.8 Albumin 4.5 CSF Tube Number CSF Color CSF Clarity CSF WBC CSF RBC CSF Neutrophils % CSF Lymphocytes % CSF Monos/Macrophage % CSF Other Cells % CSF Diff Comment CSF Glucose CSF Total Protein COVID-19 Source EBV DNA, Quant 08/27/20 08/27/20 08/27/20 10:25 11:50 11:50 WBC 7.48 RBC 5.53 Hgb 15.7 Hct 48.0 MCV 86.8 MCH 28.4 MCHC 32.7 RDW 13.0 Plt Count 213 MPV 9.2 Immature Gran % 0.3 Neutrophils % 77.2 Lymphocytes % 16.4 Monocytes % 5.5 Eosinophils % 0.3 Basophils % 0.3 Nucleated RBC % 0 Absolute Neutrophils 5.78 Absolute Lymphocytes 1.23 Absolute Monocytes 0.41 Absolute Eosinophils 0.02 Absolute Basophils 0.02 Xanthochromia Absent PT INR APTT VBG Lactate Sodium Potassium Chloride Carbon Dioxide Anion Gap BUN Creatinine Estimated GFR/1.73 m2 Glucose Calcium Total Bilirubin AST ALT Alkaline Phosphatase Total Protein Albumin CSF Tube Number 4 CSF Color [place] CSF Clarity Cloudy CSF WBC 22 H CSF RBC 80577 H CSF Neutrophils % 63 H CSF Lymphocytes % 15 L CSF Monos/Macrophage % 22 CSF Other Cells % 0 CSF Diff Comment Performed CSF Glucose CSF Total Protein 110 H COVID-19 Source EBV DNA, Quant 08/27/20 08/27/20 08/27/20 12:50 14:19 18:35 WBC RBC Hgb Hct MCV MCH MCHC RDW Plt Count MPV Immature Gran % Neutrophils % Lymphocytes % Monocytes % Eosinophils % Basophils % Nucleated RBC % Absolute Neutrophils Absolute Lymphocytes Absolute Monocytes Absolute Eosinophils Absolute Basophils Xanthochromia PT INR APTT VBG Lactate Sodium Potassium Chloride Carbon Dioxide Anion Gap BUN Creatinine Estimated GFR/1.73 m2 Glucose Calcium Total Bilirubin AST ALT Alkaline Phosphatase Total Protein Albumin CSF Tube Number CSF Color CSF Clarity CSF WBC CSF RBC CSF Neutrophils % CSF Lymphocytes % CSF Monos/Macrophage % CSF Other Cells % CSF Diff Comment CSF Glucose 96 H CSF Total Protein COVID-19 Source Nasal/nares EBV DNA, Quant Cancelled Last Vital Signs Temp 36.5 C 08/27/20 09:47 Pulse 68 08/27/20 19:46 Resp 18 08/27/20 19:50 BP 157/90 H 08/27/20 19:46 Pulse Ox 97 08/27/20 19:50 COVID-19 Screening Have you, or household traveled for leisure in last 14 days?: No Had IN PERSON contact w/suspected or confirmed C-19 person: No
[2020-08-27 22:02] LABS: COVID-19 PCR Negative (Negative)
[2020-08-28] MEDS: hydroCHLOROthiazide 12.5 MG TAB PO (00:42)
[2020-08-28] MEDS: amLODIPine 5 MG TAB PO (00:42)
[2020-08-28] MEDS: Normal Saline Flush 10 ML SYR IVP (00:43)
[2020-08-28] MEDS: Benazepril 10 MG TAB 40 MG PO (00:43)
[2020-08-28] MEDS: Normal Saline 1,000 ML 125 ML IV ×2 (00:46→09:02)
[2020-08-28 06:48] LABS: Enterovirus PCR, CSF Negative (Negative)
[2020-08-28 07:09] VITALS: BP 158/91; PULSE 60; RESP 16; TEMP 36.7; O2SAT 99
[2020-08-28 07:35] LABS: HSV 1 DNA Result Negative (Negative); HSV 2 DNA Result Negative (Negative); Varicella Zoster DNA Result Negative (Negative)
[2020-08-28 07:54] LABS: Abs Immature Grans 0.02 10^3/uL (0.0-0.06); Absolute Basophil Count 0.04 10^3/uL (0.0-0.2); Absolute Eosinophil Count 0.05 10^3/uL (0.0-0.7); Absolute Lymphocyte Count 1.65 10^3/uL (1.2-3.4); Absolute Monocyte Count 0.54 10^3/uL (0.1-0.8); Absolute Neutrophil Count 5.77 10^3/uL (1.2-6.7); Basophils % 0.5; Eosinophils % 0.6; HCT 46.5 % (40.0-50.0); HGB 15.3 g/dL (13.5-17.5); Immature Grans % 0.2; Lymphocytes % 20.4; MCH 28.4 pg (27.0-33.0); MCHC 32.9 % (32.0-36.0); MCV 86.4 fL (80-95); MPV 9.1 fL (8.0-11.0); Monocytes % 6.7; Neutrophils % 71.6; Nucleated RBC 0 %; Platelet Count 217 10^3/uL (130-400); RBC 5.38 10^6/uL (4.36-5.78); RDW 12.8 % (11.8-14.1); RDW-SD 40.4 fL; WBC 8.07 10^3/uL (4.4-10.8)
[2020-08-28 08:03] LABS: Magnesium 2.1 mg/dL (1.8-2.4)
[2020-08-28] MEDS: Atorvastatin 20 MG TAB PO (08:03)
[2020-08-28] MEDS: Acetaminophen 325 MG TAB 650 MG PO (08:08)
[2020-08-28 08:11] LABS: ALT 43 U/L (16-63); AST 13 U/L (15-37); Albumin 4.2 g/dL (3.4-5.0); Alkaline Phosphatase 53 U/L (46-116); Anion Gap 7.7 mmol/L (3-11); BUN 10 mg/dL (7-18); Bilirubin, Total 2.1 mg/dL (0.2-1.0); CO2 28.3 mmol/L (21.0-32.0); CREATININE 0.9 mg/dL (0.70-1.30); Calcium 9.2 mg/dL (8.5-10.1); Chloride 103 mmol/L (98-107); Glucose 104 mg/dL (74-106); Potassium 3.4 mmol/L (3.5-5.1); Sodium 139 mmol/L (136-145); Total Protein 7.4 g/dL (6.4-8.2)
[2020-08-28] MEDS: Potassium Chloride 20 MEQ TABCR 40 MEQ PO (10:12)
[2020-08-28 15:23] VITALS: BP 165/94; PULSE 61; RESP 17; TEMP 37.2; O2SAT 99
--- NOTE | 2020-08-28 16:34 | W.PM.DS.N ---
Date of service: 08/28/20 Time of Service: 16:34 DS: Diagnosis Discharge Diagnosis (1) Headache: Status: Resolved Asessment and Plan: Likely spontaneous CSF leak headache (2) Hyperbilirubinemia: Status: Acute Asessment and Plan: Possible Gilbert's syndrome (3) Pure hypercholesterolemia: Status: Chronic (4) Impaired fasting glucose: Status: Chronic (5) Hypertension: Status: Chronic (6) COVID-19 ruled out by laboratory testing: Status: Ruled-out Discharge Plan Disposition Patient Disposition: HOME Condition: Stable Discharge Details Reason For Visit: HEADACHE Admit Date/Time: 08/27/20 19:41 Admit Provider: Jj Morrison Attending Provider: Jj Morrison Primary Care Provider: Sierra Puckett Hospital Course Hospital Course: Mr Farr is a 54 year old male with PMhx of HTN, hyperlipidemia, impaired fasting glucose, who was observed on [facility] hospitalist service overnight after presenting with a headache accompanied by phonophobia which was worse with sitting up. The patient had undergone an LP on this visit to the ED, which was traumatic. MRI of the brain was recommended and was negative for SAH. With IVF and time, the patient's symptoms resolved on their own. A CSF leak headache was strongly suspected due to the positional component of the pain. He was evaluated by anesthesia for a possible blood patch but by then was already feeling better. He was also seen briefly by Dr Nguyen, whom the patient should see as outpatient if PCP feels is necessary. The patient is instructed to return to [facility] ED for blood patch treatment by anesthesia should his headache return/worsen. He should stay home from work tomorrow. He ruled out for COVID-19 by nasal PCR. His Tick studies are still pending at time of discharge and should be followed up by PCP. Care for patient as well as completion of his d/c summary took 25 minutes on day of discharge. Home Meds and New Rx's Prescriptions: Continued amlodipine-benazepril 5-40 mg capsule 1 cap PO DAILY Qty: 90 RF: 3 [id number] [[id number]-[id number] (with antiox)] 500-500-66.7 mg tablet 2 tab PO DAILY RF: 0 omega-3 fatty acids [Fish Oil Concentrate] 1,000 mg capsule 1,000 mg PO BID RF: 0 atorvastatin 20 mg tablet 20 mg PO DAILY Qty: 90 RF: 3 hydrochlorothiazide 12.5 mg capsule 12.5 mg PO DAILY Qty: 90 RF: 3 prochlorperazine maleate [Compazine] 10 mg tablet 10 mg PO Q6H PRNQty: 10 RF: 0 Discharge Instructions Instructions: Cerebrospinal Fluid Leak (ED) Additional Instructions: Return to the hospital if your headache returns/worsens, if you develop fever, visual/neurological changes, bleeding, chest pain, or shortness of breath. Follow up with your PCP in 1-2 weeks. Stand Alone Forms: Nursing Discharge Form Referrals: Sierra Puckett MD [Primary Care Provider] - Activity:: Activity as Tolerated Equipment/Supplies:: No Equipment Needed Diet:: As Tolerated Discharge Orders Discharge Orders: Discharge Order (Routine); Ordered 08/28/20 Ordered By: Roselia Hercules DS: Summary Time Spent with Patient providing and/or coordinating discharge services: Less than 30 minutes Status at Discharge Functional status at discharge: independent ambulation Overall status at discharge: patient is progressing back to baseline Mental Status: mental status grossly normal Speech and Movement: speech and movement normal Mood: congruent mood Affect: normal affect Exam Narrative Exam Narrative: General: middle-aged male, sitting up in bed, looks comfortable HEENT: EOMI, MMM Heart: RRR, no m/r/g Lungs: CTAB Abdomen: soft, nontender, nondistended Extremities: no edema Psych Mental Status: mental status grossly normal Speech and Movement: speech and movement normal Mood: congruent mood Affect: normal affect DS: Data Vitals/I&O Vitals and I&O: Vital Signs Temperature 37.2 C 08/28/20 15:23 Temperature Source Temporal Artery Scan 08/28/20 15:23 Pulse 61 08/28/20 15:23 Pulse Rhythm Regular 08/28/20 15:49 Pulse 64 08/27/20 22:01 Respiratory Rate 17 08/28/20 15:23 Respiratory Effort Non-Labored 08/28/20 15:49 Respiratory Depth Normal 08/28/20 15:49 Respiratory Pattern Normal 08/28/20 15:49 Blood Pressure 165/94 H 08/28/20 15:23 Blood Pressure Mean 107 08/27/20 22:01 Blood Pressure Position Supine 08/27/20 09:47 Pulse Oximetry 99 08/28/20 15:23 Oxygen Delivery Method Room Air 08/28/20 15:23 Oxygen Flow Rate 0 08/28/20 15:23 Pain Level 3 08/28/20 15:23 Intake & Output 08/27/20 08/28/20 08/28/20 23:59 11:59 23:59 Intake Total 2100 / 2100 1400 / 1640 240 / 1640 Output Total 1200 / 1200 Balance 900 / 900 1400 / 1640 240 / 1640 Weight 78.245 kg Intake: IV 2100 / 2100 1000 / 1000 Oral 400 / 640 240 / 640 Output: Urine 1200 / 1200 Other: Urine Appearance Clear Clear Clear Comment Patient reported that he urinated in the toliet. 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 Voiding Methods Toilet Data Completed and Pending Completed studies during hospitalization [Text1]: MRI brain: Normal MRI of the brain. Pending studies at discharge: Lyme/tick studies. Labs on day of discharge: Labs from last 24 hours 08/28/20 08/28/20 08/28/20 07:33 07:33 07:33 WBC 8.07 RBC 5.38 Hgb 15.3 Hct 46.5 MCV 86.4 MCH 28.4 MCHC 32.9 RDW 12.8 Plt Count 217 MPV 9.1 Immature Gran % 0.2 Neutrophils % 71.6 Lymphocytes % 20.4 Monocytes % 6.7 Eosinophils % 0.6 Basophils % 0.5 Nucleated RBC % 0 Absolute Neutrophils 5.77 Absolute Lymphocytes 1.65 Absolute Monocytes 0.54 Absolute Eosinophils 0.05 Absolute Basophils 0.04 Sodium 139 Potassium 3.4 L Chloride 103 Carbon Dioxide 28.3 Anion Gap 7.7 BUN 10 Creatinine 0.9 Estimated GFR/1.73 m2 >= 60.00 Glucose 104 Calcium 9.2 Magnesium Total Bilirubin 2.1 H AST 13 L ALT 43 Alkaline Phosphatase 53 Total Protein 7.4 Albumin 4.2 CSF Lyme DNA Comment CSF B.burgdorferi (PCR) CSF B.mayonii (PCR) CSF B.carissa/afzel PCR CSF Enterovirus (PCR) A.phagocytophil DNA PCR Pending B. divergens/MO-1 PCR Pending Babesia duncani (PCR) Pending Babesia microti DNA PCR Pending Borrelia (PCR) Pending Lyme Specimen Source Lyme Disease Antibody Pending COVID-19 Source SARS-CoV-2 (PCR) E.chaffeensis DNA (PCR) Pending E.ewingii/canis DNA PCR Pending E. muris-like DNA (PCR) Pending HSV Source Description HSV I DNA PCR HSV II DNA PCR VZV Specimen Descript VZV DNA (PCR) Path Cons Comment 08/28/20 08/27/20 08/27/20 07:33 18:35 11:50 WBC RBC Hgb Hct MCV MCH MCHC RDW Plt Count MPV Immature Gran % Neutrophils % Lymphocytes % Monocytes % Eosinophils % Basophils % Nucleated RBC % Absolute Neutrophils Absolute Lymphocytes Absolute Monocytes Absolute Eosinophils Absolute Basophils Sodium Potassium Chloride Carbon Dioxide Anion Gap BUN Creatinine Estimated GFR/1.73 m2 Glucose Calcium Magnesium 2.1 Total Bilirubin AST ALT Alkaline Phosphatase Total Protein Albumin CSF Lyme DNA Comment Pending CSF B.burgdorferi (PCR) Pending CSF B.mayonii (PCR) Pending CSF B.carissa/afzel PCR Pending CSF Enterovirus (PCR) A.phagocytophil DNA PCR B. divergens/MO-1 PCR Babesia duncani (PCR) Babesia microti DNA PCR Borrelia (PCR) Lyme Specimen Source Pending Lyme Disease Antibody COVID-19 Source Nasal/nares SARS-CoV-2 (PCR) Negative E.chaffeensis DNA (PCR) E.ewingii/canis DNA PCR E. muris-like DNA (PCR) HSV Source Description HSV I DNA PCR HSV II DNA PCR VZV Specimen Descript VZV DNA (PCR) Path Cons Comment 08/27/20 08/27/20 08/27/20 11:50 11:50 11:50 WBC RBC Hgb Hct MCV MCH MCHC RDW Plt Count MPV Immature Gran % Neutrophils % Lymphocytes % Monocytes % Eosinophils % Basophils % Nucleated RBC % Absolute Neutrophils Absolute Lymphocytes Absolute Monocytes Absolute Eosinophils Absolute Basophils Sodium Potassium Chloride Carbon Dioxide Anion Gap BUN Creatinine Estimated GFR/1.73 m2 Glucose Calcium Magnesium Total Bilirubin AST ALT Alkaline Phosphatase Total Protein Albumin CSF Lyme DNA Comment CSF B.burgdorferi (PCR) CSF B.mayonii (PCR) CSF B.carissa/afzel PCR CSF Enterovirus (PCR) Negative A.phagocytophil DNA PCR B. divergens/MO-1 PCR Babesia duncani (PCR) Babesia microti DNA PCR Borrelia (PCR) Lyme Specimen Source Lyme Disease Antibody COVID-19 Source SARS-CoV-2 (PCR) E.chaffeensis DNA (PCR) E.ewingii/canis DNA PCR E. muris-like DNA (PCR) HSV Source Description Not Applicable HSV I DNA PCR Negative HSV II DNA PCR Negative VZV Specimen Descript Not Applicable VZV DNA (PCR) Negative Path Cons Comment Preliminary micro results at discharge 08/27/20 11:50 Body Fluid Culture - Preliminary Cerebrospinal Fluid [facility] Medical History Family history of diabetes mellitus Hypertension Impaired fasting glucose Pure hypercholesterolemia Surgical History H/O colonoscopy (04/28/18) normal, repeat 2022 H/O vasectomy Hx of tonsillectomy S/P LASIK surgery of both eyes Family History Father CAD (coronary artery disease) Diabetes Hypertension Mother Diabetes Hypertension Neurofibromatosis Brother , age 19 rectal cancer relater to neurofibomatosis Rectal cancer Neurofibromatosis Social History Smoking/Tobacco Use Status: Never Smoking risk assessment performed?: Yes Alcohol Intake: current Alcohol Intake frequency: a few times a week Alcohol type: beer and hard liquor Drug use: Never Substance use type: does not use Adopted: No Household members: spouse and children Housing: house Number of Children: 2 Communication Needs: None 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
--- NOTE | 2020-08-28 17:10 | PDOC.CMIN ---
- If Service Date Differs Date of service: 08/28/20 Time of Service: 17:10 Care Management Initial Assess REASON FOR HOSPITALIZATION:: Headache PAST MEDICAL HISTORY/PAST SURGICAL HISTORY:: Medical History. Family history of diabetes mellitus. Hypertension. Impaired fasting glucose. Pure hypercholesterolemia. Surgical History. H/O colonoscopy (04/28/18). normal, repeat 2022. H/O vasectomy. Hx of tonsillectomy. S/P LASIK surgery of both eyes PREVIOUS FUNCTIONAL STATUS/SOCIAL/FAMILY SUPPORTS:: Hugh lives in [facility] with his , Brenda. Their kids are all grown up and out of the house. 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 He is independent at baseline. CURRENT FUNCTIONAL STATUS:: Hugh was lying in bed when CM met with him. He reported that he was doing well and was not in any pain. He stated that he is hoping to be discharged today. CM will continue to follow. ADVANCE DIRECTIVES:: Not on file. Has patient been provided with info about the portal/API?: Yes Did the patient sign up for the portal?: Yes (previously) CODE STATUS:: Full Code INSURANCE COVERAGE / FINANCIAL ISSUES:: [employer] CURRENT HOME/COMMUNITY SERVICES/EQUIPMENT:: No current services or equipment. PRIMARY CARE PHYSICIAN:: Sierra Puckett POTENTIAL DISCHARGE NEEDS:: follow up appointments. PATIENT/FAMILY EDUCATION NEEDS:: Review discharge instructions, discussion of self care needs. ANTICIPATED BARRIERS TO DISCHARGE:: None identified. TRANSPORTATION:: Via private vehicle by family. PLAN:: Hugh will return home when medically cleared. He will be driven home via private vehicle. He will follow up with his PCP and discharge plan of care. CM will continue to follow.
--- NOTE | 2020-08-28 17:23 | PDOC.CMDIS ---
- If Service Date Differs Date of service: 08/28/20 Time of Service: 17:23 LACE Index Scoring Tool - Questions: Length of Stay (in days): 1 Acuity (Admit via E.D.?): Yes E.D. Visits: 2 - Answers: Total Score: 6 Risk of Readmission: Low Risk Care Management Discharge Reason for Hospitalization: Headache Discharge Plan: Edward will return home with no services. He will be driven home via private vehicle. He will follow up with his PCP and discharge plan of care. He is happy to be going home. Patient/Family Education Needs: Review discharge instructions regarding activity levels and medications, discussion of self care needs.
[2020-08-29 10:03] LABS: Lyme Ab w Rflx to Lyme Confirm Negative (Negative)
[2020-08-29 16:15] LABS: Result Negative (Negative); Specimen Source CSF
[2020-08-30 20:34] LABS: Anaplasma phagocytophilum Negative (Negative); B. miyamotoi PCR Negative (Negative); Babesia divergens/MO-1 Negative (Negative); Babesia duncani Negative (Negative); Babesia microti Negative (Negative); Ehrlichia chaffeensis Negative (Negative); Ehrlichia ewingii/canis Negative (Negative); Ehrlichia muris eauclairensis Negative (Negative)
[2020-09-02 18:30] LABS: Specimen Source CSF
== END 2020-08-28 17:36 | disposition home or self-care (01) ==
LOC: ER 21:37 → MS 22:26
PROVIDERS: Internal Medicine; Physician Assistant; Admitting Provider Family Medicine; Emergency Provider Emergency Medicine; PCP Internal Medicine; Visit Provider Family Medicine
DX: R51.9 Headache, unspecified (principal); I10 Essential (primary) hypertension; R73.01 Impaired fasting glucose; Z20.822 Contact with and (suspected) exposure to COVID-19; E78.00 Pure hypercholesterolemia, unspecified; E80.6 Other disorders of bilirubin metabolism
CPT/HCPCS: 36415; 62270; 80053; 82945; 87498; 87529; 87635; 87798; 87799; 89050; 89051; 96361; 96374; 99217; 99219; 99220; 99285; 70551; 83605; 83735; 84157; 85025; 85610; 85730; 86618; 87070; 87205; 87476; G0378; J0131

== ENCOUNTER 2020-08-30 08:01 | Emergency (ER) | payer OTHER, SELFPAY ==
[2020-08-30 08:05] VITALS: BP 149/94; PULSE 65; RESP 18; TEMP 36.1; O2SAT 97
--- NOTE | 2020-08-30 08:43 | W.ED.GENAD ---
Discharge Plan Disposition Patient Disposition: [facility] Condition: Stable Discharge Details Clinical Impression: Vertical nystagmus, Horizontal nystagmus, Vertical diplopia, Vision changes Primary Care Provider: Sierra Puckett ED Provider: Angel Lamb Home Meds and New Rx's Prescriptions: Continued amlodipine-benazepril 5-40 mg capsule 1 cap PO DAILY Qty: 90 RF: 3 [id number]-spz-aleeo-[id number]-mhpm [Qmdpol-Fzsur-TAW (with antiox)] 500-500-66.7 mg tablet 2 tab PO DAILY RF: 0 omega-3 fatty acids [Fish Oil Concentrate] 1,000 mg capsule 1,000 mg PO BID RF: 0 atorvastatin 20 mg tablet 20 mg PO DAILY Qty: 90 RF: 3 hydrochlorothiazide 12.5 mg capsule 12.5 mg PO DAILY Qty: 90 RF: 3 prochlorperazine maleate [Compazine] 10 mg tablet 10 mg PO Q6H PRNQty: 10 RF: 0 Discharge Instructions Additional Instructions: You have elected to have your family member drive you to [facility] rather than have EMS transport you. Please have your family member drive you directly to the [facility] emergency department. Please inform them that you were just at [facility] emergency department, and chose to drive yourself to the ED. Tell them you are there to see neurology, Dr. Hugh Tejeda for an evaluation in the emergency department. Medical Decision Making 54-year-old male presents today for evaluation of double vision/blurry vision. Patient has an in-depth recent history. About 5 days ago the patient developed a gradual onset headache, which is notably atypical for him as he never gets headaches. He presented to the ER and had a negative CT/CTA. He declined lumbar puncture at that time and went home. He came back the next day with worsening headache, lumbar puncture was performed, and unfortunately there was a traumatic tap. No evidence of meningitis clinically. Subsequent MRI without contrast was negative for bleed or other abnormality. Patient was admitted overnight for persistent headache. He declined blood patch after having classic post LP headache symptoms. 3 days ago he is feeling much better, headache had resolved, and symptoms were notably improved. He was discharged home. Yesterday at home he developed some subsequent mild fogginess in his head, headache had completely resolved though. Then today the patient noticed continued fogginess, difficulty tracking with vision when looking horizontally, and then began to notice vertical diplopia when looking at TV screens or other objects. He then came into the ER for further evaluation. Aside for brain fogginess, and the vertical diplopia which is now resolved, patient still does admit to some mild difficulty tracking horizontally, but denies any other complaints. No headache, no fever, no chills, no diminished vision, no numbness, no tingling, or weakness. He denies any family history of atypical neurologic dysfunction, aneurysms, Amy-Danlos syndrome, or malignancy of the brain. He does have a history of family malignancies in the GI system though he had neurofibromatosis. Exam today demonstrates a well-appearing male, negative meningeal signs. Bidirectional horizontal nystagmus, vertical nystagmus. However the remainder of his cerebellar function testing including test of skew, ambulation, were all very normal. Patient clinically looks well. He does demonstrate some vertical diplopia when looking downwards. Symptoms are notably atypical and concerning. Review of the previous records from his few visits did not seem to demonstrate the presence of these findings. I did contact [facility] and discussed the case with neurology/Dr. Tejeda. He feels that with the progression of the patient's symptoms it is certainly concerning, and does merit further work-up. He recommends MRI with contrast. Unfortunately we do not have any MRI availability over the weekend. We did discuss outpatient options, neurology feels a prompt evaluation and imaging is indicated at this time especially with the progression of his symptoms. Laboratory work-up is relatively unremarkable. No white count or bandemia. Hemoglobin stable. Electrolytes normal. Bilirubin total is slightly elevated at 1.7. However this appears to be in line with the patient's normal bilirubin levels. 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 Transaminases are normal. ESR and CRP are both normal. After discussion with Dr. Tejeda, the plan has been made that the patient will be transferred to the ER for neurology assessment there. The patient has declined/refused EMS transport, and is requesting to go via personal transport by his family. The risks and benefits of this were discussed, as well as the potential for life-threatening change in status during transport patient understands. We did contact [facility] and inform them that the patient will be coming down by private vehicle to the ED for evaluation. They are aware. Immediately prior to disposition the patient was reassessed and appeared clinically stable. patient will be discharged for direct transport to the emergency department at [facility] for neurologic evaluation. [facility] General Date/Time Provider Initiated Documentation: 08/30/20 08:09. [facility] Narrative: 54-year-old male presents today for evaluation of double vision/blurry vision. Patient has an in-depth recent history. About 5 days ago the patient developed a gradual onset headache, which is notably atypical for him as he never gets headaches. He presented to the ER and had a negative CT/CTA. He declined lumbar puncture at that time and went home. He came back the next day with worsening headache, lumbar puncture was performed, and unfortunately there was a traumatic tap. No evidence of meningitis clinically. Subsequent MRI without contrast was negative for bleed or other abnormality. Patient was admitted overnight for persistent headache. He declined blood patch after having classic post LP headache symptoms. 3 days ago he is feeling much better, headache had resolved, and symptoms were notably improved. He was discharged home. Yesterday at home he developed some subsequent mild fogginess in his head, headache had completely resolved though. Then today the patient noticed continued fogginess, difficulty tracking with vision when looking horizontally, and then began to notice vertical diplopia when looking at TV screens or other objects. He then came into the ER for further evaluation. Aside for brain fogginess, and the vertical diplopia which is now resolved, patient still does admit to some mild difficulty tracking horizontally, but denies any other complaints. No headache, no fever, no chills, no diminished vision, no numbness, no tingling, or weakness. He denies any family history of atypical neurologic dysfunction, aneurysms, Amy-Danlos syndrome, or malignancy of the brain. He does have a history of family malignancies in the GI system though he had neurofibromatosis. Related Data Home Medications Medication Instructions Recorded Confirmed amlodipine 5 mg-benazepril 40 mg 1 cap PO DAILY #90 cap 01/09/20 08/30/20 capsule atorvastatin 20 mg tablet 20 mg PO DAILY #90 tab 07/29/20 08/30/20 hydrochlorothiazide 12.5 mg capsule 12.5 mg PO DAILY #90 tab-cap 07/29/20 08/30/20 ghsxadakldp-dbm-avisidclb-hrb 2 tab PO DAILY tab 08/13/20 08/30/20 149-hyalur 500 mg-500 mg-66.7 mg tablet omega-3 fatty acids 1,000 mg 1,000 mg PO BID 08/13/20 08/30/20 capsule prochlorperazine maleate 10 mg PO Q6H PRN #10 tab 08/26/20 08/30/20 [Compazine] Previous Rx's Medication Instructions Recorded amlodipine 5 mg-benazepril 40 mg 1 cap PO DAILY #90 cap 01/09/20 capsule atorvastatin 20 mg tablet 20 mg PO DAILY #90 tab 07/29/20 hydrochlorothiazide 12.5 mg capsule 12.5 mg PO DAILY #90 tab-cap 07/29/20 prochlorperazine maleate 10 mg PO Q6H PRN #10 tab 08/26/20 [Compazine] Allergies Allergy/AdvReac Type Severity Reaction Status Date / Time No Known Allergies Allergy Verified 08/30/20 08:09 General Stated Complaint: Headache DU: 3 Review of Systems All systems reviewed & are unremarkable except as noted in HPI and below PFSH Medical History Family history of diabetes mellitus Hypertension Impaired fasting glucose Pure hypercholesterolemia Surgical History H/O colonoscopy (04/28/18) normal, repeat 2022 H/O vasectomy Hx of tonsillectomy S/P LASIK surgery of both eyes Family History Father CAD (coronary artery disease) Diabetes Hypertension Mother Diabetes Hypertension Neurofibromatosis Brother , age 19 rectal cancer relater to neurofibomatosis Rectal cancer Neurofibromatosis Social History Smoking/Tobacco Use Status: Never Smoking risk assessment performed?: Yes Alcohol Intake: current Alcohol Intake frequency: a few times a week Alcohol type: beer and hard liquor Drug use: Never Substance use type: does not use Adopted: No Household members: spouse and children Housing: house Number of Children: 2 Communication Needs: None 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 [employer] Pets and animals: No Current gender identity: male What is your relationship status?: Panel score (0-1 are the most socially isolated patients): 1 What type of physical activity do you participate in: running Duration: 15-30 minutes/day Frequency: 1-2 times per week Seatbelt use: always Drive intox or ride w/intox seasonal driver: No Water heater temp set <120 deg: Yes Working smoke detector in home: Yes Fire extinguisher in home: Yes Carbon monox detector in home: Yes Do you feel safe at home: Yes Do you feel safe in your relationship?: Yes Exam Narrative Exam Narrative: 1.Const: Well-nourished, Well-developed, appearing stated age 2.Eyes: PERRL, no conjunctival injection, and symmetrical lids. 3.ENT: Atraumatic external nose and ears. Notably dry MM. Neck: Symmetric, trachea midline, No thyromegaly. Patient demonstrates good movement of cervical neck. There is no nuchal rigidity, no nuchal tenderness. Patient is able to flex the neck without any difficulty or significant pain. Negative Kernig's and Brudzinski sign. 4.CVS: +S1/S2, No murmurs or gallops. Peripheral pulses 2+ and equal in all extremities. Brisk capillary refill in all extremities. 5.RESP: Unlabored respiratory effort. Clear to auscultation bilaterally. No wheezes rales or rhonchi 6.GI: Soft, Nontender/Nondistended, No hepatosplenomegaly. No guarding or rebound. 7.MSK: Normocephalic/Atraumatic, Extremities w/o deformity or ttp No cyanosis or clubbing, Normal movement of all extremities 8.Skin: Warm, Dry. No rashes or lesions. 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 Sensation grossly intact, no focal neurologic deficits. All 6 cardinal planes of vision are fully intact. The patient demonstrated a normal pksted-ijpz-iumnle, good dexterity. There was no evidence of dysdiadochokinesia. Patient was able to ambulate without difficulty. There was no wide-based gait. Romberg testing was normal. Ucaf-wv-jfsc testing was normal. Sensation was intact bilaterally as well as muscle strength bilaterally for all extremities. Patient was able to verbalize butter cup with no slurring, or miss pronunciation. Patient does demonstrate bidirectional horizontal nystagmus albeit subtle, as well as a vertical nystagmus. All kay of vision are intact. The patient's vertical diplopia is reproducible when the patient is looking downwards. Patient does have a very subtle droop of his right eyelid compared to the left however review of previous pictures seem to indicate that this is not new. No facial asymmetries otherwise. No facial droop whatsoever otherwise. The head impulse test is unremarkable. Normal test of skew. No palpable or tender temporal artery. 10.Psych: (AAO) x3. Appropriate mood and affect Course Vital Signs Vital signs: Vital Signs Temperature 36.1 C L 08/30/20 08:05 Pulse 65 08/30/20 08:05 Respiratory Rate 18 08/30/20 08:05 Blood Pressure 149/94 H 08/30/20 08:05 Pulse Oximetry 97 08/30/20 08:05 Temperature 36.1 C L 08/30/20 08:05 Temperature Source Temporal Artery Scan 08/30/20 08:05 Pulse 65 08/30/20 08:05 Respiratory Rate 18 08/30/20 08:05 Respiratory Effort Non-Labored 08/30/20 08:11 Blood Pressure 149/94 H 08/30/20 08:05 Blood Pressure Position Sitting 08/30/20 08:05 Pulse Oximetry 97 08/30/20 08:05 Oxygen Delivery Method Room Air 08/30/20 08:05 Oxygen Flow Rate 0 08/30/20 08:05 Pain Level 3 08/30/20 08:05
[2020-08-30] MEDS: Normal Saline 1,000 ML 1000 ML IV (08:45)
[2020-08-30 08:49] LABS: Abs Immature Grans 0.02 10^3/uL (0.0-0.06); Absolute Basophil Count 0.03 10^3/uL (0.0-0.2); Absolute Eosinophil Count 0.16 10^3/uL (0.0-0.7); Absolute Monocyte Count 0.56 10^3/uL (0.1-0.8); Absolute Neutrophil Count 4.15 10^3/uL (1.2-6.7); Basophils % 0.5; Eosinophils % 2.4; HCT 50.3 % (40.0-50.0); HGB 16.9 g/dL (13.5-17.5); Immature Grans % 0.3; Lymphocytes % 25.7; MCH 28.6 pg (27.0-33.0); MCHC 33.6 % (32.0-36.0); MCV 85.1 fL (80-95); Monocytes % 8.5; Neutrophils % 62.6; Nucleated RBC 0 %; Platelet Count 257 10^3/uL (130-400); RBC 5.91 10^6/uL (4.36-5.78); RDW 12.3 % (11.8-14.1); RDW-SD 38.5 fL; WBC 6.62 10^3/uL (4.4-10.8)
[2020-08-30 09:01] LABS: ALT 45 U/L (16-63); AST 12 U/L (15-37); Albumin 4.6 g/dL (3.4-5.0); Alkaline Phosphatase 59 U/L (46-116); Anion Gap 9.7 mmol/L (3-11); BUN 24 mg/dL (7-18); Bilirubin, Total 1.7 mg/dL (0.2-1.0); CO2 27.3 mmol/L (21.0-32.0); CREATININE 1.2 mg/dL (0.70-1.30); Calcium 9.6 mg/dL (8.5-10.1); Chloride 102 mmol/L (98-107); Glucose 117 mg/dL (74-106); Potassium 3.8 mmol/L (3.5-5.1); Sodium 139 mmol/L (136-145); Total Protein 8.3 g/dL (6.4-8.2)
[2020-08-30 09:14] LABS: ESR 7 mm//hr (0-20)
[2020-08-30 09:17] LABS: C-Reactive Protein < 0.05 mg/dL (0.0-0.3)
== END 2020-08-30 09:49 | disposition short-term general hospital (02) ==
PROVIDERS: Emergency Provider Student in an Organized Health Care Education/Training Program; PCP Internal Medicine
DX: H55.09 Other forms of nystagmus (principal); H53.2 Diplopia
CPT/HCPCS: 80053; 85652; 96360; 99285; 85025; 86140; 99284

== ENCOUNTER 2021-02-13 03:17 | Outpatient (CLI) | payer OTHER, SELFPAY ==
[2021-02-13 09:25] LABS: Anion Gap 9.1 mmol/L (3-11); BUN 19 mg/dL (7-18); CO2 28.9 mmol/L (21.0-32.0); CREATININE 1.1 mg/dL (0.70-1.30); Calcium 9.2 mg/dL (8.5-10.1); Calculated LDL 129 mg/dL (<100); Chloride 104 mmol/L (98-107); Cholesterol 200 mg/dL (<200); Glucose 103 mg/dL (74-106); HDL Cholesterol 53 mg/dL (40-60); Potassium 4.3 mmol/L (3.5-5.1); Sodium 142 mmol/L (136-145); Triglyceride 94 mg/dL (<150)
== END 2021-02-13 03:18 | disposition home or self-care (01) ==
LOC: LBO 03:17
PROVIDERS: PCP Internal Medicine; Visit Provider Internal Medicine
DX: I10 Essential (primary) hypertension (principal); E78.00 Pure hypercholesterolemia, unspecified
CPT/HCPCS: 36415; 80048; 80061

== ENCOUNTER 2022-02-22 04:23 | Outpatient (CLI) | payer OTHER, SELFPAY ==
[2022-02-22 13:14] LABS: Hemoglobin A1C 5.8 % (<5.7)
[2022-02-22 13:21] LABS: ALT 43 U/L (16-63); AST 22 U/L (15-37); Albumin 4.5 g/dL (3.4-5.0); Alkaline Phosphatase 64 U/L (46-116); Anion Gap 8.8 mmol/L (3-11); BUN 17 mg/dL (7-18); Bilirubin, Total 1.5 mg/dL (0.2-1.0); CO2 29.2 mmol/L (21.0-32.0); Calcium 9.2 mg/dL (8.5-10.1); Calculated LDL 103 mg/dL (<100); Chloride 102 mmol/L (98-107); Cholesterol 178 mg/dL (<200); Estimated GFR 89.44 (mL/min/1.73m2); Glucose 99 mg/dL (74-106); HDL Cholesterol 64 mg/dL (40-60); Potassium 3.4 mmol/L (3.5-5.1); Sodium 140 mmol/L (136-145); Total Protein 7.7 g/dL (6.4-8.2); Triglyceride 58 mg/dL (<150)
== END 2022-02-22 04:24 | disposition home or self-care (01) ==
LOC: LBO 04:23
PROVIDERS: PCP Internal Medicine; Referring Provider Nurse Practitioner Family; Visit Provider Nurse Practitioner Family
DX: E78.5 Hyperlipidemia, unspecified (principal); R73.01 Impaired fasting glucose; I10 Essential (primary) hypertension; E80.6 Other disorders of bilirubin metabolism
CPT/HCPCS: 36415; 80053; 80061; 83036

== ENCOUNTER 2023-07-11 13:40 | Outpatient (CLI) | payer OTHER, SELFPAY ==
[2023-07-11 08:10] LABS: ALT 38 U/L (16-63); AST 17 U/L (15-37); Albumin 4.2 g/dL (3.4-5.0); Alkaline Phosphatase 61 U/L (46-116); Anion Gap 8.6 mmol/L (3-11); BUN 19 mg/dL (7-18); Bilirubin, Total 1.8 mg/dL (0.2-1.0); CO2 28.4 mmol/L (21.0-32.0); CREATININE 1.2 mg/dL (0.70-1.30); Calcium 9.4 mg/dL (8.5-10.1); Calculated LDL 105 mg/dL (<100); Chloride 105 mmol/L (98-107); Cholesterol 178 mg/dL (<200); Estimated GFR 71.42 (mL/min/1.73m2); Glucose 111 mg/dL (74-106); HDL Cholesterol 60 mg/dL (40-60); Potassium 4.2 mmol/L (3.5-5.1); Sodium 142 mmol/L (136-145); Total Protein 7.4 g/dL (6.4-8.2); Triglyceride 67 mg/dL (<150)
[2023-07-11 08:11] LABS: Hemoglobin A1C 5.6 % (<5.7)
== END 2023-07-11 13:41 | disposition home or self-care (01) ==
LOC: LBO 13:41
PROVIDERS: PCP Nurse Practitioner Family; Visit Provider Nurse Practitioner Family
DX: I10 Essential (primary) hypertension (principal); R73.01 Impaired fasting glucose; E78.5 Hyperlipidemia, unspecified
CPT/HCPCS: 36415; 80053; 80061; 83036

== ENCOUNTER 2023-10-28 07:30 | Day surgery (SDC) | payer OTHER, SELFPAY ==
--- NOTE | 2023-10-27 20:00 | PDOC.DSDIS_ITS ---
Date of service: 10/28/23 Time of Service: 09:24 Discharge Plan Disposition Patient Disposition: Home Condition: Good Discharge Details Reason For Visit: screening colonoscopy Attending Provider: Noe Tejeda Primary Care Provider: Leland Mcnair Home Meds and New Rx's Prescriptions: Continued amlodipine-olmesartan 5-40 mg tablet See Rx Instructions .ROUTE .COMPLEX Qty: 90 3RF Dose Instruction: TAKE ONE TABLET BY MOUTH EVERY DAY Rx Instructions: TAKE ONE TABLET BY MOUTH EVERY DAY cfpixsao-edy-cjizb-yvb170-omer [Lkzatd-Hvuqq-YUC (with antiox)] 500-500-66.7 mg tablet 2 tab PO DAILY omega-3 fatty acids [Fish Oil Concentrate] 1,000 mg capsule 1,000 mg PO BID atorvastatin 20 mg tablet 20 mg PO DAILY Qty: 90 3RF hydrochlorothiazide 12.5 mg capsule 12.5 mg PO DAILY Qty: 90 3RF Discontinued bisacodyl [Dulcolax (bisacodyl)] 5 mg tablet,delayed release (DR/EC) 5 mg PO ONCE Qty: 4 0RF Rx Instructions: Take per colonoscopy instructions provided by ordering providers office polyethylene glycol 3350 17 gram/dose powder 17 g PO ONCE Qty: 238 0RF Rx Instructions: Take per colonoscopy instructions provided by ordering providers office Discharge Instructions Instructions: Colorectal Polyps (GEN) Additional Instructions: Ed, we were able to complete your colonoscopy today without any difficulty. Your prep was excellent and I could see everything fine. I did remove 1 polyp from the bottom portion of your rectum. 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 fibroepithelial polyps are basically skin tags that occur around the anus. They probably result from chr onic hemorrhoids. Regardless, I took this out today, and I will send it off for testing. Because of its proximity to the anus, this can cause some pain after the procedure if you experience discomfort, hemorrhoid suppositories will probably provide the most relief. Hopefully, however, it will not bother you at all. Once I have the results of the polyp analysis, the office will be in touch regarding recommendations for your next colonoscopy. If you have any questions in the meantime, please do not hesitate to call or ask at any point. 1. If tolerated, consume a soft, low fiber diet for 1-2 days. 2[address] Do not drive, drink alcohol, operate machinery, make critical decisions, or do activities that require coordination or balance for 24 hours. 3. Because air was put into your colon during the procedure, expelling air from your rectum (passing gas or farting) is normal. 4. You may not have a bowel movement for 1-3 days because of the colonoscopy prep. This is normal. 5. Go directly to the emergency room if you notice any of the following: Develop chills (warm to touch), or if you have a thermometer and your temperature is above 101 Difficulty breathing or difficultly swallowing Persistent vomiting Severe abdominal pain, other than gas cramps Severe chest pain Black, tarry stools Any bleeding ? exceeding one tablespoon 6. Call your physician if the site where your intravenous was started becomes red, swollen, painful, and warm to touch. 7. Your physician has reviewed your pre-procedure medications. Please continue to take those medications as previously ordered. You will be given specific information/education regarding any changes to your medications before leaving. Activity:: Activity as Tolerated Diet:: As Tolerated Discharge Orders Discharge Orders: Discharge Order (Routine); Ordered 10/27/23 Ordered By: Noe Tejeda DS: Diagnosis Discharge Diagnosis (1) Encounter for screening colonoscopy: Status: Acute Asessment and Plan: Follow-up on polypectomy results
--- NOTE | 2023-10-27 20:02 | W.COLOREPORT ---
Date of service: 10/28/23 Time of Service: 09: Colonoscopy Report Date of procedure: 10/28/23 Pre-op diagnosis general: screening colonoscopy Post-op diagnosis procedure note: other (Rectal polyp) Procedure: colonoscopy with polypectomy Surgeon: Noe Tejeda Anesthesia Type: General:No Airway Estimated blood loss (mL): 5 Pathology: other (0.75 cm pedunculated rectal polyp) Complications: None Disposition: same day Indications: Ed is a 58 year old man with a family history of colon cancer. He needs his next screening colonoscopy Prep: Miralax/Dulcolax Procedure Start Time: 09:01 Procedure End Time: 09:16 Retraction Time: 6 Findings: 0.75 cm pedunculated rectal polyp Procedure Description: After the induction of anesthesia, and with the patient in left lateral decubitus position, I began by performing an external anorectal exam.? Perineum and skin were normal, as was the anal verge.? There is an external perianal skin tag.? Next, I performed a digital rectal exam.? There is a small nodule at the upper portion of the anal canal.? Next, I advanced a colonoscope into the rectal vault.? I performed retroflexion.? There is a 0.75 cm pedunculated polyp just at the top portion of the anal column. 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 This was removed with a energize snare polypectomy. There was minimal bleeding. Using insufflation, I then advanced the colonoscope beyond the rectal folds and into the sigmoid colon before advancing towards the cecum.? The quality of the prep was excellent.? The scope was noted to be in the cecum by identification of the ileocecal valve and appendiceal orifice.? I then began withdrawing the colonoscope using repeated irrigation as necessary for full evaluation of the colonic mucosa. ?Once the scope was withdrawn to the level of the rectum, great care was taken to examine portions of the rectal folds.? Aside from the rectal polyp mentioned above, there was no other pathology. Finally, the scope was withdrawn and the patient was brought to the same-day surgery recovery unit as the anesthetic wore off. ?The findings and instructions were shared with the patient prior to discharge. [place] Bowel Prep [place] Bowel Prep Right Colon: 3 Transverse Colon: 3 Total Score: 6
[2023-10-28 07:42] VITALS: BP 121/85; PULSE 65; RESP 16; TEMP 36.6; O2SAT 98
[2023-10-28] MEDS: Lactated Ringers 1,000 ML 80 ML IV (07:47)
--- NOTE | 2023-10-28 08:50 | W.ANESPRE ---
General Info Date of Service Date Performed: 10/28/23 Height: 5 ft 6 in Weight: 81.7 kg Body Mass Index (BMI): 29.0 Surgical Procedure: Operation Date: 10/28/23 09:20 Proposed Procedure Side Surgeon p Colonoscopy Noe Tejeda MD Actual Procedure Side Surgeon p Colonoscopy Not Applicable Noe Tejeda MD Meds Allergies and Home Medications Allergies Allergy/AdvReac Type Severity Reaction Status Date / Time No Known Allergies Allergy Verified 10/28/23 07:37 Home Medication Medication Instructions Recorded rvecmtpqjmt-wxo-unmrrtmfl-hrb 2 tab PO DAILY 08/13/20 149-hyalur 500 mg-500 mg-66.7 mg tablet (Vpeisvlyjrk-Uvfwhqppmdj-XBB (with antiox)) omega-3 fatty acids 1,000 mg 1,000 mg PO BID 08/13/20 capsule (Fish Oil Concentrate) atorvastatin 20 mg tablet 20 mg PO DAILY #90 tabs 07/07/23 hydrochlorothiazide 12.5 mg capsule 12.5 mg PO DAILY #90 tab-caps 07/07/23 amlodipine 5 mg-olmesartan 40 mg See Rx Instructions .Route 07/12/23 tablet .COMPLEX #90 tabs Current Visit Medications: Current Medications Generic Name Dose Route Start Last Admin Trade Name Freq PRN Reason Stop Dose Admin Hyoscyamine Sulfate 0.125 mg 10/27/23 20:14 Hyoscyamine 0.125 Mg Sl/Oral/Chew SL 11/26/23 20:13 DIRECTED PRN Ringer's Solution 1,000 mls @ 80 mls/hr 10/28/23 06:00 10/28/23 07:47 IV 10/28/23 23:59 80 mls/hr INFUSION LUIS Administration IV Miscellaneous Supplies 1 each 10/28/23 06:00 Iv Access IV 10/28/23 23:59 DIRECTED LUIS Ondansetron HCl 4 mg 10/27/23 20:14 Ondansetron 4 Mg/2 Ml Vial IVP 11/26/23 20:13 Q4H PRN PRN Nausea / Vomiting Sodium Chloride 0 ml 10/28/23 06:00 Normal Saline Flush 10 Ml Syr IV 10/28/23 23:59 PRN PRN Sodium Chloride 0 ml 10/28/23 06:00 Normal Saline 10 Ml Vial IJ 10/28/23 23:59 DIRECTED PRN Sterile Water 0 ml 10/28/23 06:00 Water,Injection,Sterile 10 Ml Vial IJ 10/28/23 23:59 DIRECTED PRN PFS Active Problems Active Problems: Problem Status Onset Code Encounter for screening colonoscopy Z12.11 Diplopia H53.2 Abducent nerve palsy, 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 Followed up with neurology for 2 years and was released from their care 2022, and no longer required to f/u Headache d/t spontaneous CSF leaks Surgical History Surgical History H/O colonoscopy (04/28/18) normal, repeat 2022 S/P LASIK surgery of both eyes Hx of tonsillectomy H/O vasectomy Tobacco Smoking/Tobacco Use Status: Never Passive smoking exposure: No Alcohol Alcohol Intake: current Alcohol intake frequency: a few times a week Alcohol type: beer and hard liquor Substance Use Substance use: Never Substance use type: does not use Vital Signs and Lab Results Vital Signs Most Recent Vital Signs in EMR: Most Recent Vital Signs Temp Pulse Resp BP Pulse Ox 36.6 C 65 16 121/85 98 10/28/23 07:42 10/28/23 07:42 10/28/23 07:42 10/28/23 07:42 10/28/23 07:42 Lab Results Blood Type / Crossmatch: No Data to Display Complete Blood Count: No Data to Display Complete Metabolic Panel: No Data to Display Liver Function Panel: No Data to Display Coagulation Panel: No Data to Display Cardiac Panel: No Data to Display Arterial Blood Gas: No Data to Display Venous Blood Gas: No Data to Display Pancreas Panel: No Data to Display Thyroid Panel: No Data to Display Infectious Disease: No Data to Display Blood Cultures: No Data to Display Toxicology Panel: No Data to Display Anesthesia Assessment and Plan Anesthesia History Personal History: No History of Anesthesia Complications Family History: No Family History of Anesthesia Complications Exercise Tolerance Exercise Tolerance: Metabolic Equivalents>4 Pertinent Negatives Pertinent Negatives: No Symptoms of GERD Cardiac & Pulmonary Exam Cardiac Exam: Normal S1/S2 Heart Sounds Pulmonary Exam: Clear Bilateral Breath Sounds Implantable Cardiac Device Does patient have a Pacemaker or an ICD?: No Airway Exam Known Difficult Airway: No Mallampati Class: 2 Mouth Opening: Normal (> 3cm) Thyromental Distance: Greater than 3 cm Neck Range of Motion: Full ROM Neck Circumference: Normal Teeth Condition: Normal Dentition ASA Classification ASA Score: ASA 2 Emergency Case?: No NPO Status NPO Status: NPO Clears >2 hours, Solids >8 hours Anesthesia Plan Resuscitation Status: Full Code Anesthesia Technique: General Anesthesia Airway Planned: Natural Airway Monitors Used: Standard Monitors
[2023-10-28 08:51] VITALS: BMI 29.0
--- NOTE | 2023-10-28 09:05 | BOWEL_PTH ---
PATIENT: Hugh Farr LOC: [facility] U#:[id number] AGE/SX: 58/M ROOM: RE10/28/[address]: Noe Tejeda MD : [id number] BED: DIS: 10/28/2023 SPEC #: [id number] RECD: 10/28/23 10:22 STATUS: SHERYL RE #: [id number] LATHA: 10/28/23 09:[address]: Noe Tejeda DEPT: Surgical Specimen RECD BY: Faye Rose ENTERED: 10/28/23 10:23 SP TYPE: Bowel OTHR DR: Leland Mcnair DO Tissues: 1 - BIOPSY BOWEL Procedures: GROSS AND MICRO LEVEL 4 Comments: [id number]
[2023-10-28 09:20] VITALS: BP 109/80; PULSE 70; RESP 16; TEMP 36.4; O2SAT 94
--- NOTE | 2023-10-28 09:25 | W.ANESPOSTOP ---
Postoperative Evaluation Date, Time and Location Date Performed: 10/28/23 Time Performed: :25 Patient Location: Day Surgery Unit Vital Signs Most Recent Imported Vital Signs: Most Recent Vital Signs Temp Pulse Resp BP Pulse Ox 36.4 C L 70 16 109/80 94 10/28/23 09:20 10/28/23 09:20 10/28/23 09:20 10/28/23 09:20 10/28/23 09:20 Pain Score Most Recent Pain Score: Most Recent Pain Score Pain Level 0 10/28/23 09:20 Assessment Mental Status: Awake (Alert & Oriented to Patient Baseline) Airway and Respiratory Function: Patent airway with normal (patient baseline) respiratory exam Cardiovascular Function: Hemodynamically Stable Hydration Status: Adequately Hydrated Nausea & Vomiting: No Nausea or Vomiting Pain: Pt. Denies Any Pain Peripheral Nerve Block: Patient did not receive a nerve block
[2023-10-28 09:50] VITALS: BP 112/81; PULSE 66; RESP 18; TEMP 36.6; O2SAT 98
== END 2023-10-28 10:09 | disposition home or self-care (01) ==
LOC: SUR 07:31
PROVIDERS: PCP Family Medicine; Visit Provider Surgery
PROC: 0DJD8ZZ Inspection of Lower Intestinal Tract, Via Natural or Artificial Opening Endoscopic (ICD-10-PCS; CPT 45378; principal; 2023-10-28 09:15)
DX: Z12.11 Encounter for screening for malignant neoplasm of colon (principal); K62.1 Rectal polyp; Z80.0 Family history of malignant neoplasm of digestive organs
CPT/HCPCS: 45385; 88305; J2001; J2704

== ENCOUNTER 2024-09-03 16:11 | Outpatient (CLI) | payer OTHER, SELFPAY ==
[2024-09-03 16:38] LABS: Anion Gap 9.7 mmol/L (3-11); BUN 16 mg/dL (7-18); CO2 28.3 mmol/L (21.0-32.0); CREATININE 1.1 mg/dL (0.70-1.30); Calcium 9.5 mg/dL (8.5-10.1); Chloride 103 mmol/L (98-107); Estimated GFR 78.79 (mL/min/1.73m2); Glucose 80 mg/dL (74-106); Potassium 3.9 mmol/L (3.5-5.1); Sodium 141 mmol/L (136-145)
== END 2024-09-03 16:12 | disposition home or self-care (01) ==
LOC: LBO 16:11
PROVIDERS: PCP Family Medicine; Visit Provider Family Medicine
DX: R73.01 Impaired fasting glucose (principal)
CPT/HCPCS: 36415; 80048